=== PATIENT | male | born 1935 | race Caucasian/White ===

== ENCOUNTER 2017-12-30 11:58 | Inpatient (IN) ==
--- NOTE | 2017-12-29 21:25 | Discharge Summary ---
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 Priority: Secondary Status: Chronic (2) Sacral decubitus ulcer, stage II Priority: Secondary Status: Chronic (3) H/O aortic valve replacement Priority: Secondary Status: Chronic (4) History of aortic root repair Priority: Secondary Status: Chronic (5) Mitral valve disease Priority: Secondary Status: Chronic (6) Meniere disease Priority: Secondary Status: Chronic Qualifiers: Laterality: unspecified laterality Qualified Code(s): H81.09 - Meniere's disease, unspecified ear (7) History of skilled nursing anticoagulant use Priority: Secondary Status: Chronic (8) Chronic pain Priority: Secondary Status: Chronic Qualifiers: Chronic pain type: other chronic pain Qualified Code(s): G89.29 - Other chronic pain (9) Arthritis of left hip Priority: Primary Status: Chronic (10) Status post total hip replacement, left Priority: Primary Status: Acute (11) Afib Priority: Secondary Status: Chronic Qualifiers: Atrial fibrillation type: unspecified Qualified Code(s): I48.91 - Unspecified atrial fibrillation (12) Acute blood loss anemia Priority: Primary Status: Acute - Hospital Course Hospital course: Mr. Pickering is a 82 year old male Status post left total hip replacement The patient had an uneventful postoperative course. They received antibiotics and physical therapy and were discharged in stable condition. There will follow -up in the office in 2 weeks. - Time Spent with Patient Total time spent providing and/or coordinating discharge services: - Discharge Medications Prescriptions: HYDROcodone/Acet 5/325 mg [[place] 5-325 mg] 1 tab PO Q6H PRN 7 Days #28 tab PRN Reason: Severe Pain Home Medications: Aspirin [Lo-Dose Aspirin EC] 81 mg PO DAILY 04/10/17 [History] Furosemide [Lasix] 80 mg PO BID 04/10/17 [History] Multivitamin [Multivitamins] 1 each PO DAILY 04/10/17 [History] Potassium Chloride [K-Tab ER] 40 meq PO DAILY 04/10/17 [History] Primidone [Mysoline] 50 mg PO HS 04/10/17 [History] Warfarin [Coumadin] 3.5 mg PO MOTUWEFRSA 03/19/18 [History] Warfarin [Coumadin] 5 mg PO SUTH 10/14/17 [History] Cholecalciferol (D-3) [Vitamin D] 1,000 unit PO QPM 12/30/17 [History] Citalopram [CeleXA] 20 mg PO HS 12/30/17 [History] Enoxaparin [Lovenox] 40 mg SQ Q12HR 12/30/17 [History] Metoprolol [Lopressor] 25 mg PO BID 12/30/17 [History] Potassium Chloride [K-Tab ER] 20 meq PO QPM 12/30/17 [History] Tamsulosin [Flomax] 0.4 mg PO DAILY 12/30/17 [History] Vit A/Vit C/Vit E/Zinc/Copper [Icaps Areds Formula Dr Tablet] 1 tab PO BID 12/30 [History] HYDROcodone/Acet 5/325 mg [[place] 5-325 mg] 1 tab PO Q6H PRN 7 Days #28 tab 01/02 [Rx] Allergies/Adverse Reactions: 3 Allergy/AdvReac Type Severity Reaction Status Date / Time acetaminophen [From Percocet] AdvReac Irritable Verified 10/14/17 14:40 meperidine [From Demerol] AdvReac Nausea Verified 10/14/17 14:39 Oxycodone [From Percocet] AdvReac Irritable Verified 10/14/17 14:40 Primary care physician: King Dos Santos - Patient Status Disposition: Transfer Inpatient Rehab Fac Condition: Good Functional capacity at discharge: uses cane/walker Overall status at discharge: patient is progressing back to baseline - Discharge Instructions Follow Up With: Gaby Barcenas DO [Primary Care Provider] - <Carlene Pepe - Last Filed: 01/02/18 13:56> Date of Encounter: 01/02/18 - Discharge Diagnosis (1) Status post total hip replacement, left Priority: Primary Status: Acute (2) Arthritis of left hip Priority: Primary Status: Chronic (3) H/O aortic valve replacement Priority: Secondary Status: Chronic (4) History of aortic root repair Priority: Secondary Status: Chronic (5) Mitral valve disease Priority: Secondary Status: Chronic (6) Meniere disease Priority: Secondary Status: Chronic Qualifiers: Laterality: unspecified laterality Qualified Code(s): H81.09 - Meniere's disease, unspecified ear (7) History of skilled nursing anticoagulant use Priority: Secondary Status: Chronic (8) Chronic pain Priority: Secondary Status: Chronic Qualifiers: Chronic pain type: other chronic pain Qualified Code(s): G89.29 - Other chronic pain - Hospital Course Hospital course: Mr. Pickering is a 82 year old male - Time Spent with Patient Total time spent providing and/or coordinating discharge services: Primary care physician: King Dos Santos
[2017-12-30] MEDS ORDERED: CeFAZolin Syr 2,000MG/20 ML 2,000 MG/20 ML SYRINGE IVPB ONE (12:27)
[2017-12-30] MEDS ORDERED: Ringers Solution, Lactated 1,000 ML IVC SCH (12:30)
--- NOTE | 2017-12-30 13:42 | History & Physical Report ---
Date of Encounter: 12/30/17 Time of Encounter: 13:42 24 Hour HP Update - Instructions Instructions: If the History and Physical is less than 30 days old and was completed prior to A.M. admission and or procedure and has NOT been updated on calendar day of procedure please complete this update prior to performing procedure. - Update Patient reports changes in Medical Condition: No Changes in examination, assessment, or condition: No Changes in Medication: No Preop tests/diagnostics Reviewed: Yes Surgery Remains Indicated: Yes Consent for Planned Operative Procedure(s) Verified: Yes - Pre-Operative Checklist Preoperative Checklist Indicated: No Prophylactic Antibiotic Ordered: Yes Is VTE Prophylaxis Indicated?: Yes
[2017-12-30] MEDS ORDERED: Ondansetron 4 MG/2 ML VIAL ONE (14:25)
[2017-12-30] MEDS ORDERED: Lidocaine -MPF 2% 2 ML VIAL ONE (14:25)
[2017-12-30] MEDS ORDERED: Dexamethasone 4 MG/ML VIAL ONE (14:25)
[2017-12-30] MEDS ORDERED: *HR* Succinylcholine 200 MG/10 ML VIAL IVP ONE (14:25)
[2017-12-30] MEDS ORDERED: *HR* Propofol 200 MG/20 ML VIAL IVP ONE (14:26)
[2017-12-30] MEDS ORDERED: *HR* Midazolam HCl 2 MG/2 ML VIAL ONE (14:26)
[2017-12-30] MEDS ORDERED: *HR* FentaNYL (PF) 100 MCG/2 ML VIAL ONE (14:26)
--- NOTE | 2017-12-30 14:33 | Anesthesia Evaluation PreOp ---
Date of Encounter: 12/30/17 Time of Encounter: 14:30 - Past History Planned Operation: LEFT JACIEL Cardiac History: Arrhythmia (Afib post cardiac surgery 05/2017), Cardiac Surgery (05/2017: Thoracic aortic aneurysm + AVR) Pulmonary History: Denies Any Significant HX DRUG SAFETY SPECIALIST History: Other (Generalized weakness, tremors) Other Medical History: Other (BPH, Depression) Anesthesia History: No Prior Anesthetic Complications, Past Anesthesia Alcohol Use: occasionally Drug use: none Medications and Allergies Aspirin [Lo-Dose Aspirin EC] 81 mg PO DAILY 04/10/17 [History] Furosemide [Lasix] 80 mg PO BID 04/10/17 [History] Multivitamin [Multivitamins] 1 each PO DAILY 04/10/17 [History] Potassium Chloride [K-Tab ER] 40 meq PO DAILY 04/10/17 [History] Primidone [Mysoline] 50 mg PO HS 04/10/17 [History] Warfarin [Coumadin] 3.5 mg PO MOTUWEFRSA 10/14/17 [History] Warfarin [Coumadin] 5 mg PO SUTH 10/14/17 [History] Cholecalciferol (D-3) [Vitamin D] 1,000 unit PO QPM 12/30/17 [History] Citalopram [CeleXA] 20 mg PO HS 12/30/17 [History] Enoxaparin [Lovenox] 40 mg SQ Q12HR 12/30/17 [History] Metoprolol [Lopressor] 25 mg PO BID 12/30/17 [History] Potassium Chloride [K-Tab ER] 20 meq PO QPM 12/30/17 [History] Tamsulosin [Flomax] 0.4 mg PO DAILY 12/30/17 [History] Vit A/Vit C/Vit E/Zinc/Copper [Icaps Areds Formula Dr Tablet] 1 tab PO BID 12/30 [History] 3 Allergy/AdvReac Type Severity Reaction Status Date / Time acetaminophen [From Percocet] AdvReac Irritable Verified 10/14/17 14:40 meperidine [From Demerol] AdvReac Nausea Verified 10/14/17 14:39 Oxycodone [From Percocet] AdvReac Irritable Verified 10/14/17 14:40 - Meds/Allergy Pre-op Review Medications Reviewed: Yes Allergies Reviewed: Yes Beta Blockers on Current Med List: Yes If Beta Blockers taken, Date/Time (Last Dose taken): 0800 Anesthesia Results - Imaging EKG: report reviewed (AF) Additional studies: TTE 08/2017: LVEF 55%. Normal LV chamber size and function. Atypical septal motion consistent with post-operative status. Indeterminate diastolic function. Normal right ventricular structure and function. Severely dilated left atrium. Bioprosthetic aortic valve appears well seated and demonstrates normal function. No aortic regurgitation. No significant prosthetic aortic stenosis. Mean gradient 11 mmHg. Moderate-severe tricuspid regurgitation. No pulmonary hypertension. Anesthesia Exam O2 Sat Height 1.73 m Height 1.73 m Height 1.73 m Weight 87.997 kg Weight 87.997 kg Weight 87.997 kg O2 Sat by Pulse Oximetry 93 O2 Sat by Pulse Oximetry 93 Vital Signs Temp Pulse Resp BP Pulse Ox 98.0 F 80 18 124/77 93 12/30/17 12:17 12/30/17 12:17 12/30/17 12:17 12/30/17 12:17 12/30/17 12:17 NPO (# of Hours): 8 - HEENT Pupil (Motor): Pupils equal Mallampati: II Teeth: Normal Denture Type: Upper: Partial - DRUG SAFETY SPECIALIST LOC: Oriented (Intention tremors) DRUG SAFETY SPECIALIST Motor: Normal RUE, Normal LUE, Normal RLE, Normal LLE - Cardiac Rhythm: Irregular - Pulmonary Breath Sounds: bilateral Clear Anesthesia Assess/Plan ASA Score: 4 Modified Kenyon Scale for Level of Consciousness: Cooperative, oriented, and tranquil Anesthetic Plan: General Monitoring Plan: Standard Monitors Recovery Plan: PACU Anes Supervising Prov Stmt: Patient informed and consented. Risks, benefits, and alternatives discussed. Patient wishes to proceed.
[2017-12-30] MEDS ORDERED: Ethanol\\Acetic Acid\\Na Ace\\Ben 1,000 ML IRRIG.SOLN IR ONE (15:43)
[2017-12-30] MEDS ORDERED: Ondansetron 4 MG/2 ML VIAL IVP PRN ×2 (16:59→18:26)
[2017-12-30] MEDS ORDERED: *HR* OxyCODONE Immed Rel 5 MG TABLET PO PRN (16:59)
[2017-12-30] MEDS ORDERED: *HR* Morphine 2 MG/ML SYRINGE IVP PRN (16:59)
--- NOTE | 2017-12-30 17:10 | Orthopedic Operative Note ---
Date of procedure: 12/30/17 Pre-op diagnosis: Left hip arthritis Post-op diagnosis: same Procedure: Procedure: Left Total Hip Replacment robotic-assisted Estimated blood loss: 400 cc Hardware: Metal and polyethylene replacement. Katiuska DM Cup:58 cup Femoral size 7 stem Head: 12 head with Isamar Procedural Notes: Grade 4 arthritic changes femoral head acetabular socket, procedure performed with robotic assistance. Operative leg 5 mm longer than nonoperative leg with bilateral hip arthritis Operative procedure: The patient was brought to the operating room and placed on the operating room table. After general anesthesia was administered the patient was placed in the lateral decubitus position with the operative leg up. All pressure points were padded appropriately and the head was stabilized in the neutral position. The operative extremity was prepped and draped in the sterile surgical fashion patient received IV antibiotic prior to skin incision. 3 Steinmann pins were placed in the iliac crest 3 cm proximal to the anterior superior iliac spine this was for the robotic-assisted sensor. This was done through a small 2 cm incision. A standard posterior approach is made to the operative hip, the incision was made through the skin and subcutaneous tissue hemostasis was obtained with Bovie cautery. Using careful sharp dissection the fascia was identified and incised exposing the external rotators. The femoral checkpoint was placed leg length was measured at this time utilizing robotic assistance. The external rotators were released off the greater trochanter and tagged with # 2 FiberWire suture. The capsule was T'd open and the hip was brought into internal rotation. Patient noted to have grade 4 arthritic changes femoral head. The femoral neck cut was made at the appropriate level roughly 13 mm proximal to the lesser trochanter aced on preoperative templating. An anterior capsulotomy was performed for the anterior retractor. Soft tissues removed from the acetabulum. Patient noted to have grade 4 arthritic changes acetabulum. The acetabulum checkpoint was placed confirmed. The acetabulum was then mapped with robotic assistance. Based on the preoperative plan the acetabulum was reamed in one step with a 57 reamer. The 58 acetabulum was impacted with robotic assistance and 40 degrees of abduction and 20 degrees of anteversion. The hip was brought back in to internal rotation and prepared with the box nailer followed by the canal finder followed by the reaming process to a size 7/ 8 broaching process in 20 degrees anteversion. It was broached up to the appropriate size 7. Trial reduction revealed leg lengths close to normal. The femoral implant was impacted in place in 20 degrees of anteversion. Trial reduction found the hip to be stable with 12 head and Isamar. The trials were removed and the real implants were impacted in place. The hip was reduced, patient had robotic confirmed leg length of 12 mm longer than the contralateral side. The hip had excellent stability with forward flexion to 90 degrees adduction of 30 degrees and internal rotation of 60 degrees. The hip had no shuck. The hips after 2 minutes with a antibacterial solution. It was irrigated out with 2 L of pulse irrigation. The checkpoints were removed, Steinmann pins were removed. The hip was closed by the PA. The deep tissue was irrigated and closed deep with #1 PDS suture superficially with 0 PDS suture and skin was closed with Dermabond and zip tie. The patient was placed in a sterile dressing and abduction pillow. The patient was extubated and transferred to the recovery room in stable condition. Anesthesia: GETA Surgeon: Niko Parker Was there an assistant professor of geography present: No Estimated blood loss (cc): 400 Condition: stable Disposition: PACU
[2017-12-30] MEDS ORDERED: Neostigmine Methylsulfate 3 MG/3 ML SYRINGE ONE (17:33)
[2017-12-30] MEDS ORDERED: *HR* Enoxaparin 30 MG/0.3 ML SYRINGE SQ SCH (18:00)
[2017-12-30] MEDS ORDERED: CeFAZolin Pre 2,000 MG/100 ML 2,000 MG/100 ML BAG IVPB SCH (18:26)
[2017-12-30] MEDS ORDERED: Temazepam 15 MG CAPSULE PO PRN (18:26)
[2017-12-30] MEDS ORDERED: MOM Conc 10 ML UD.LIQ PO PRN (18:26)
[2017-12-30] MEDS ORDERED: Sennosides 8.6 MG TABLET PO PRN (18:26)
[2017-12-30] MEDS ORDERED: *HR* HYDROcodone/Acet 10/325 mg TABLET PO PRN (18:26)
[2017-12-30] MEDS ORDERED: Naloxone 0.4 MG/ML INJ IVP PRN (18:26)
--- NOTE | 2017-12-30 18:35 | Anesthesia Evaluation Post Op ---
Date of Encounter: 12/30/17 Time of Encounter: 18:32 Notes: Patient's vital signs have been reviewed. Patient is stable postoperatively and has adequately recovered from anesthesia. Patient is determined to have stable airway patency and respiratory function including respiratory rate and oxygen saturation. Patient has a stable heart rate, blood pressure and adequate hydration. Patients mental status is acceptable. Patients temperature is appropriate. Pain and nausea are adequately controlled. - Discharge PostOp Status: Transfer Patient to floor
[2017-12-30 19:44] LABS: Hematocrit 37.2 % (37.5-50.1); Hemoglobin 12.4 g/dL (12.9-16.9)
[2017-12-30] MEDS: Ascorbic Acid 500 MG TABLET PO SCH (20:30)
[2017-12-30] MEDS: Primidone 50 MG TABLET PO SCH (20:30)
[2017-12-30] MEDS: Cholecalciferol (D-3) 1,000 UNIT TABLET PO SCH (20:35)
[2017-12-30] MEDS: *HR* HYDROcodone/Acet 5/325 mg TABLET PO PRN (20:35)
[2017-12-30] MEDS: Furosemide 40 MG TABLET PO SCH (20:35)
[2017-12-30] MEDS ORDERED: *HR* Warfarin 3 MG TABLET PO SCH (21:00)
[2017-12-30] MEDS: Patient Taking Own Medication 1 EACH PO SCH (23:20)
[2017-12-30] MEDS: traMADol 50 MG TABLET PO PRN (23:32)
[2017-12-31 02:05] LABS: Hematocrit 34.8 % (37.5-50.1); Hemoglobin 11.8 g/dL (12.9-16.9)
[2017-12-31 02:24] LABS: BUN/Creatinine Ratio 19 (6-26); Blood Urea Nitrogen 23 mg/dL (8-23); Calcium 8.8 mg/dL (8.6-10.3); Carbon Dioxide 28 mEq/L (23-29); Chloride 101 mEq/L (98-107); Glucose 207 mg/dL (70-105); Osmolality,Calculated 294 (280-300); Potassium 3.7 mEq/L (3.5-5.1); Sodium 137 mEq/L (136-145); eGFR For African Americans > 60 (> 60); eGFR For Non-African Americans 57 (> 60)
[2017-12-31] MEDS: *HR* Enoxaparin 30 MG/0.3 ML SYRINGE SQ SCH ×2 (06:48→16:38)
--- NOTE | 2017-12-31 06:52 | Orthopedics Progress Note ---
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 Current Visit: No Status: Chronic (2) Sacral decubitus ulcer, stage II Current Visit: No Status: Chronic (3) H/O aortic valve replacement Current Visit: No Status: Chronic (4) History of aortic root repair Current Visit: No Status: Chronic (5) Mitral valve disease Current Visit: No Status: Chronic (6) Meniere disease Current Visit: No Status: Chronic Qualifiers: Laterality: unspecified laterality Qualified Code(s): H81.09 - Meniere's disease, unspecified ear (7) History of longterm anticoagulant use Current Visit: No Status: Chronic (8) Chronic pain Current Visit: No Status: Chronic Qualifiers: Chronic pain type: other chronic pain Qualified Code(s): G89.29 - Other chronic pain (9) Arthritis of left hip Current Visit: No Status: Chronic (10) Status post total hip replacement, left Current Visit: No Status: Acute (11) Afib Current Visit: No Status: Chronic Qualifiers: Atrial fibrillation type: unspecified Qualified Code(s): I48.91 - Unspecified atrial fibrillation Subjective Interval history: Patient was seen this morning doing well without complaints. Afebrile vital signs stable. Operative extremity: Neurovascularly intact Dressing clean dry and intact Calves nontender Assessment and plan: Continue with postoperative care Hematocrit 34 Objective Vital signs: Vital Signs Temp Pulse Resp BP Pulse Ox 12/31/17 06:27 98.0 F 83 18 109/65 94 12/31/17 03:03 98.1 F 97 17 129/74 96 12/30/17 22:52 98.2 F 96 16 112/67 93 12/30/17 19:35 93 16 97/62 94 12/30/17 18:36 97.6 F 87 15 105/61 96 12/30/17 18:35 97.6 F 92 16 105/61 97 12/30/17 18:14 98.5 F 89 16 112/80 100 12/30/17 18:04 98.5 F 87 16 93/75 100 12/30/17 17:54 98.2 F 89 16 100/70 100 12/30/17 17:44 98.2 F 113 16 158/83 96 12/30/17 13:00 98.0 F 80 18 124/77 93 12/30/17 12:17 98.0 F 80 18 124/77 93 Intake and Output 12/30/17 12/30/17 12/31/17 15:59 23:59 07:59 Intake Total 20 / 20 Output Total 400 / 400 Balance -380 / -380 Intake: IV Fluids 20 / 20 Ancef Syringe 2,000 MG/20 ML 2, 20 / 20 000 mg In 20 ml @ 200 mls/hr IVPB PREOP ONE Rx#:[id number] Output: Estimated Blood Loss 400 / 400 Other: Weight 87.997 kg 88.2 kg 87 kg Patient Weight 12/31/17 23:59 Weight 87 kg - Labs CBC & BMP: 12/31/17 01:48 12/31/17 01:48 Labs: Abnormal lab results Hgb 11.8 g/dL (12.9-16.9) L 12/31/17 01:48 Hct 34.8 % (37.5-50.1) L 12/31/17 01:48 Est GFR (Non-Af Amer) 57 (> 60) L 12/31/17 01:48 Glucose 207 mg/dL (70-105) H 12/31/17 01:48 - VTE Documentation of Mechanical Device: Venous foot pump, device Consult Discharge Plan - Plan Referrals: Gaby Barcenas DO [Primary Care Provider] -
[2017-12-31] MEDS ORDERED: CeFAZolin Pre 2,000 MG/100 ML 2,000 MG/100 ML BAG IVPB SCH (07:00)
[2017-12-31] MEDS: Furosemide 40 MG TABLET PO SCH ×2 (10:13→16:38)
[2017-12-31] MEDS: Multivit/Ca/Min/Fe/FA 1 TAB TABLET PO SCH ×2 (10:13)
[2017-12-31] MEDS: Ascorbic Acid 500 MG TABLET PO SCH ×2 (10:14→16:39)
[2017-12-31] MEDS: Aspirin Enteric Coated 81 MG Tablet PO SCH (10:14)
[2017-12-31] MEDS: Patient Taking Own Medication 1 EACH PO SCH (10:16)
[2017-12-31] MEDS: traMADol 50 MG TABLET PO PRN (10:25)
[2017-12-31 12:06] LABS: INR 1.4; Prothrombin Time 15.4 Seconds (9.4-12.1)
[2017-12-31] MEDS: PRESERVISION AREDS 2 PO SCH ×2 (12:07→22:34)
[2017-12-31] MEDS: *HR* HYDROcodone/Acet 5/325 mg TABLET PO PRN ×3 (12:10→20:48)
[2017-12-31] MEDS: Ringers Solution, Lactated 1,000 ML IVC SCH (12:11)
[2017-12-31] MEDS: Cholecalciferol (D-3) 1,000 UNIT TABLET PO SCH (16:39)
[2017-12-31] MEDS: Primidone 50 MG TABLET PO SCH (20:40)
[2018-01-01 01:52] LABS: Hematocrit 29.6 % (37.5-50.1)
[2018-01-01 01:54] LABS: Hemoglobin 9.8 g/dL (12.9-16.9)
[2018-01-01 02:07] LABS: BUN/Creatinine Ratio 20 (6-26); Blood Urea Nitrogen 27 mg/dL (8-23); Calcium 8.3 mg/dL (8.6-10.3); Carbon Dioxide 29 mEq/L (23-29); Chloride 98 mEq/L (98-107); Glucose 154 mg/dL (70-105); Osmolality,Calculated 284 (280-300); Potassium 3.6 mEq/L (3.5-5.1); Sodium 133 mEq/L (136-145); eGFR For African Americans > 60 (> 60); eGFR For Non-African Americans 52 (> 60)
[2018-01-01] MEDS: *HR* Enoxaparin 30 MG/0.3 ML SYRINGE SQ SCH ×2 (06:12→18:10)
--- NOTE | 2018-01-01 08:54 | Orthopedics Progress Note ---
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 Current Visit: No Status: Chronic (2) Sacral decubitus ulcer, stage II Current Visit: No Status: Chronic (3) H/O aortic valve replacement Current Visit: No Status: Chronic (4) History of aortic root repair Current Visit: No Status: Chronic (5) Mitral valve disease Current Visit: No Status: Chronic (6) Meniere disease Current Visit: No Status: Chronic Qualifiers: Laterality: unspecified laterality Qualified Code(s): H81.09 - Meniere's disease, unspecified ear (7) History of senior care anticoagulant use Current Visit: No Status: Chronic (8) Chronic pain Current Visit: No Status: Chronic Qualifiers: Chronic pain type: other chronic pain Qualified Code(s): G89.29 - Other chronic pain (9) Arthritis of left hip Current Visit: No Status: Chronic (10) Status post total hip replacement, left Current Visit: No Status: Acute (11) Afib Current Visit: No Status: Chronic Qualifiers: Atrial fibrillation type: unspecified Qualified Code(s): I48.91 - Unspecified atrial fibrillation (12) Acute blood loss anemia Current Visit: Yes Status: Acute Subjective Interval history: Patient was seen this morning doing well without complaints. Afebrile vital signs stable. Operative extremity: Neurovascularly intact Dressing clean dry and intact Calves nontender Assessment and plan: Continue with postoperative care Hemoglobin 9.8 Objective Vital signs: Vital Signs Temp Pulse Resp BP Pulse Ox 01/01/18 07:33 98.3 F 89 17 102/61 93 01/01/18 04:30 98.1 F 71 15 99/58 97 12/31/17 23:43 98.7 F 94 15 100/64 91 12/31/17 20:38 113/68 12/31/17 18:47 98.5 F 89 16 79/49 95 12/31/17 15:35 98.0 F 81 16 91/56 94 12/31/17 11:54 98.0 F 119 18 96/61 95 12/31/17 11:40 94 Intake and Output 12/31/17 01/01/18 01/01/18 23:59 07:59 15:59 Intake Total 300 / 300 Output Total 400 / 400 Balance 300 / 300 -400 / -400 Intake: Oral 300 / 300 Output: Urine 400 / 400 Other: # Voids 1 # Urine Diapers 1 Weight 89.5 kg - Labs CBC & BMP: 01/01/18 01:29 01/01/18 01:29 Labs: Abnormal lab results Hgb 9.8 g/dL (12.9-16.9) L D 01/01/18 01:29 Hct 29.6 % (37.5-50.1) L 01/01/18 01:29 PT 15.4 Seconds (9.4-12.1) H 12/31/17 11:48 Sodium 133 mEq/L (136-145) L 01/01/18 01:29 BUN 27 mg/dL (8-23) H 01/01/18 01:29 Creatinine 1.32 mg/dL (0.70-1.30) H 01/01/18 01:29 Est GFR (Non-Af Amer) 52 (> 60) L 01/01/18 01:29 Glucose 154 mg/dL (70-105) H 01/01/18 01:29 Calcium 8.3 mg/dL (8.6-10.3) L 01/01/18 01:29 - VTE Documentation of Mechanical Device: Venous foot pump, device Consult Discharge Plan - Plan Referrals: Gaby Barcenas DO [Primary Care Provider] -
[2018-01-01] MEDS: PRESERVISION AREDS 2 PO SCH ×2 (10:45→21:29)
[2018-01-01] MEDS: Furosemide 40 MG TABLET PO SCH ×2 (10:46→20:17)
[2018-01-01] MEDS: Ascorbic Acid 500 MG TABLET PO SCH ×2 (10:49→18:06)
[2018-01-01] MEDS: Multivit/Ca/Min/Fe/FA 1 TAB TABLET PO SCH ×2 (10:50)
[2018-01-01] MEDS: Aspirin Enteric Coated 81 MG Tablet PO SCH (10:52)
[2018-01-01] MEDS: *HR* HYDROcodone/Acet 5/325 mg TABLET PO PRN (11:07)
[2018-01-01] MEDS: Cholecalciferol (D-3) 1,000 UNIT TABLET PO SCH (18:06)
[2018-01-01] MEDS: Primidone 50 MG TABLET PO SCH (21:29)
[2018-01-02] MEDS: *HR* HYDROcodone/Acet 5/325 mg TABLET PO PRN ×2 (03:55→13:11)
[2018-01-02 06:09] LABS: INR 1.3; Prothrombin Time 13.7 Seconds (9.4-12.1)
[2018-01-02 07:21] LABS: Basophils % 0.5 %; Eosinophils # 0.1 K/mcL (0.0-0.6); Eosinophils % 1.6 %; Hematocrit 28.6 % (37.5-50.1); Hemoglobin 9.4 g/dL (12.9-16.9); Immature Granulocytes % 0.5 % (0-4); Lymphocytes # 1.2 K/mcL (0.6-4.6); Lymphocytes % 13.9 %; Mean Corpuscular HGB Conc 32.9 g/dL (31.6-35.5); Mean Corpuscular Hemoglobin 32.5 pg (28.0-33.3); Mean Platelet Volume 9.7 fL (9.4-12.4); Monocytes # 0.8 K/mcL (0.0-1.3); Monocytes % 9.2 %; Neutrophils # 6.2 K/mcL (1.6-8.9); Platelet Count 153 K/mcL (140-400); Red Blood Count 2.89 M/mcL (4.19-5.50); Red Cell Distribution Width 15.6 % (11.5-14.5); Segmented Neutrophils % 74.3 %
[2018-01-02 07:41] LABS: BUN/Creatinine Ratio 18 (6-26); Blood Urea Nitrogen 17 mg/dL (8-23); Calcium 8.6 mg/dL (8.6-10.3); Carbon Dioxide 28 mEq/L (23-29); Chloride 104 mEq/L (98-107); Glucose 131 mg/dL (70-105); Osmolality,Calculated 287 (280-300); Potassium 3.8 mEq/L (3.5-5.1); Sodium 137 mEq/L (136-145); eGFR For African Americans > 60 (> 60); eGFR For Non-African Americans > 60 (> 60)
[2018-01-02] MEDS: Furosemide 40 MG TABLET PO SCH (09:33)
[2018-01-02] MEDS: PRESERVISION AREDS 2 PO SCH (09:33)
[2018-01-02] MEDS: Ascorbic Acid 500 MG TABLET PO SCH (09:34)
[2018-01-02] MEDS: Aspirin Enteric Coated 81 MG Tablet PO SCH (09:34)
[2018-01-02] MEDS: *HR* Enoxaparin 30 MG/0.3 ML SYRINGE SQ SCH (09:35)
[2018-01-02] MEDS: Multivit/Ca/Min/Fe/FA 1 TAB TABLET PO SCH ×2 (09:35)
[2018-01-02 11:09] VITALS: BP 94/56
--- NOTE | 2018-01-02 13:36 | Event Note ---
Date of Encounter: 12/31/17 Time of Encounter: 13:35 PCR- POD#1 L THR PCR - Patient seen at bedside. Spouse at bedside. Labwork and medications reviewed. Pain control: Adequate Participating in PT. All questions and concerns addressed. Educated on use of incentive spirometer, ambulation, and hydration. Patient educated on post-operative restrictions and care. Addressed: see above. D/C plan: ECF vs HH
--- NOTE | 2018-01-02 13:37 | Event Note ---
Date of Encounter: 01/01/18 Time of Encounter: 15:30 PCR- POD#2 L THR PCR - Patient seen at bedside. Spouse at bedside. Patient's daughter at bedside. Labwork and medications reviewed. Pain control: Adequate Participating in PT. All questions and concerns addressed. Educated on use of incentive spirometer, ambulation, and hydration. Patient educated on post-operative restrictions and care. Addressed: see above. D/C plan: ECF vs HH -family leaning toward HH
--- NOTE | 2018-01-02 13:40 | Event Note ---
Date of Encounter: 01/02/18 Time of Encounter: 17:33 PCR- POD#3 L THR PCR - Patient seen at bedside. Spouse and daughter at bedside. Labwork and medications reviewed. Pain control: Adequate Participating in PT. All questions and concerns addressed. Educated on use of incentive spirometer, ambulation, and hydration. Patient educated on post-operative restrictions and care. Addressed: see above. D/C plan: [facility]
--- NOTE | 2018-01-02 17:33 | Physician Discharge Referral ---
ExtendedCare Referral Info Transfer To: ON [facility] OF [facility] Provider in Charge: Dr. Parker - Diagnosis (1) Status post total hip replacement, left Priority: Primary Status: Acute (2) Arthritis of left hip Priority: Primary Status: Chronic (3) H/O aortic valve replacement Priority: Secondary Status: Chronic (4) History of aortic root repair Priority: Secondary Status: Chronic (5) Mitral valve disease Priority: Secondary Status: Chronic (6) Meniere disease Priority: Secondary Status: Chronic (7) History of ferry terminal agent anticoagulant use Priority: Secondary Status: Chronic (8) Chronic pain Priority: Secondary Status: Chronic Expected Duration of Placement: less than 30 days Prognosis: Good Aware of Diagnosis: Patient Aware of Prognosis: Patient - Transfer Medications Prescriptions: HYDROcodone/Acet 5/325 mg [[place] 5-325 mg] 1 tab PO Q6H PRN 7 Days #28 tab PRN Reason: Severe Pain Home Medications: Aspirin [Lo-Dose Aspirin EC] 81 mg PO DAILY 04/10/17 [History] Furosemide [Lasix] 80 mg PO BID 04/10/17 [History] Multivitamin [Multivitamins] 1 each PO DAILY 04/10/17 [History] Potassium Chloride [K-Tab ER] 40 meq PO DAILY 04/10/17 [History] Primidone [Mysoline] 50 mg PO HS 04/10/17 [History] Warfarin [Coumadin] 3.5 mg PO MOTUWEFRSA 10/14/17 [History] Warfarin [Coumadin] 5 mg PO SUTH 10/14/17 [History] Cholecalciferol (D-3) [Vitamin D] 1,000 unit PO QPM 12/30/17 [History] Citalopram [CeleXA] 20 mg PO HS 12/30/17 [History] Enoxaparin [Lovenox] 40 mg SQ Q12HR 12/30/17 [History] Metoprolol [Lopressor] 25 mg PO BID 12/30/17 [History] Potassium Chloride [K-Tab ER] 20 meq PO QPM 12/30/17 [History] Tamsulosin [Flomax] 0.4 mg PO DAILY 12/30/17 [History] Vit A/Vit C/Vit E/Zinc/Copper [Icaps Areds Formula Dr Tablet] 1 tab PO BID 12/30 [History] HYDROcodone/Acet 5/325 mg [[place] 5-325 mg] 1 tab PO Q6H PRN 7 Days #28 tab 01/02 [Rx] Allergies/Adverse Reactions: 3 Allergy/AdvReac Type Severity Reaction Status Date / Time acetaminophen [From Percocet] AdvReac Irritable Verified 10/14/17 14:40 meperidine [From Demerol] AdvReac Nausea Verified 10/14/17 14:39 Oxycodone [From Percocet] AdvReac Irritable Verified 10/14/17 14:40 - Respiratory Orders Smoking Cessation: Smoking cessation has been advised. For more information, call the [place] Tobacco Quit Line at 6-026-DFAH-NOW. - Ancillary Orders May use pressure relief devices daily prn, May go on [place] w/family/respon green party w /meds at nurse discretion PRN, May consult with Dentist, Bone Process Operator, Instrument Maker Apprentice PRN - Mobility Orders Chair, Ambulate - Rehabiliation Orders Rehab Potential: Good Rehab Orders: Evaluation for Physical Therapy, Evaluation for Occupational Therapy Other: Total Hip replacement Precautions Apply cold therapy 3-6x/day for 20 minutes at a time. Encourage ambulation throughout the day and incentive spirometer 10x/hour. Elevate affected extremity as tolerated. Brace: Wear hip abduction pillow when laying/sleeping - Treatments Skin tear care topically daily PRN per policy List/Other: Opsite placed. Keep dressing intact until first follow up appointment. If greater than 50% saturated, notify office, remove dressing and place appropriate dressing back in place. Leave Zipline intact. Opsite dressing is water resistant, not water-proof. OK to shower, but do not get dressing wet. - Diet Orders Regular CERTIFICATION: I certify that the transfer of the above named patient to an Extended Care Facility is necessary for the continuing treatment of the diagnosis listed. The above information is true and accurate reflection of patient's current condition. Confidential - Redisclosure prohibited without a patient's written consent.
[2018-01-02] MEDS ORDERED: *HR* Warfarin 5 MG TABLET PO SCH (18:00)
== END 2018-01-02 18:54 | DRG 470 ==
LOC: SAMDAY 11:58 → 3NENU 18:26
PROVIDERS: ADMIT Orthopaedic Surgery; ATTEND Orthopaedic Surgery

== ENCOUNTER 2020-04-04 14:45 | Inpatient (IN) ==
[2020-04-04] MEDS ORDERED: *HR* HYDROmorphone (PF) 1 MG/ML SYRINGE IVP STA (15:35)
[2020-04-04 16:26] LABS: Hematocrit 45.6 % (37.5-50.1); Immature Granulocytes % 0.2 % (0-4); Lymphocytes # 0.4 K/mcL (0.6-4.6); Lymphocytes % 4.6 %; Mean Corpuscular HGB Conc 32.9 g/dL (31.6-35.5); Mean Corpuscular Volume 106.3 fL (83.0-100.0); Mean Platelet Volume 10.6 fL (9.4-12.4); Monocytes % 0.5 %; Neutrophils # 7.6 K/mcL (1.6-8.9); Platelet Count 101 K/mcL (140-400); Red Blood Count 4.29 M/mcL (4.19-5.50); Red Cell Distribution Width 14.2 % (11.5-14.5); Segmented Neutrophils % 94.7 %
[2020-04-04] MEDS ORDERED: Isovue-370 500 ML BOTTLE IVP ONE (16:33)
[2020-04-04 16:35] LABS: INR 2.6; Prothrombin Time 29.5 Seconds (9.4-12.1)
[2020-04-04 16:42] LABS: Bilirubin,Urine Negative (Negative); Blood,Urine Negative (Negative); Clarity,Urine Clear (Clear); Color,Urine Light-Yellow (Yellow); Glucose,Urine (UA) Normal (Normal); Ketones,Urine Negative (Negative); Leukocyte Esterase,Urine Negative (Negative); Nitrite,Urine Negative (Negative); PH,Urine 7.5 pH Units (5.0-8.0); Protein,Urine Negative (Neg-Trace); Urobilinogen,Urine Normal (Normal)
[2020-04-04 16:45] LABS: Alanine Aminotransferase 314 Units/L (7-52); Albumin 4.3 g/dL (3.5-5.7); Albumin/Globulin Ratio 1.7 (1.1-2.2); Alkaline Phosphatase 166 Units/L (34-104); Aspartate Amino Transferase 532 Units/L (13-39); BUN/Creatinine Ratio 23 (6-26); Bilirubin,Direct 1.4 mg/dL (0.0-0.2); Bilirubin,Indirect 0.9 mg/dL (0.0-1.0); Bilirubin,Total 2.3 mg/dL (0.3-1.0); Blood Urea Nitrogen 27 mg/dL (8-23); Calcium 9.4 mg/dL (8.6-10.3); Carbon Dioxide 30 mEq/L (23-29); Chloride 97 mEq/L (98-107); Globulin 2.5 g/dL (2.4-3.5); Glucose 148 mg/dL (70-105); Lipase 25 Units/L (11-82); Osmolality,Calculated 292 (280-300); Potassium 3.6 mEq/L (3.5-5.1); Sodium 137 mEq/L (136-145); Total Protein 6.8 g/dL (6.4-8.9); eGFR For African Americans > 60 (> 60); eGFR For Non-African Americans > 60 (> 60)
[2020-04-04 16:48] LABS: Bacteria,Urine Few per hpf (None-Few); RBC,Urine 0-3 per hpf (0-3); WBC,Urine 0-3 per hpf (0-3)
[2020-04-04] MEDS ORDERED: Ondansetron 4 MG/2 ML VIAL IVP ONE (17:10)
[2020-04-04] MEDS ORDERED: Ondansetron 4 MG/2 ML VIAL IVP PRN (18:29)
[2020-04-04] MEDS ORDERED: Naloxone 0.4 MG/ML INJ IVP PRN (18:29)
[2020-04-04 20:14] LABS: Adenovirus Not Detected (Not Detect); Bordetella Pertussis Not Detected (Not Detect); Chlamydophila pneumoniae Not Detected (Not Detect); Coronavirus 229E Not Detected (Not Detect); Coronavirus HKU1 Not Detected (Not Detect); Coronavirus NL63 Not Detected (Not Detect); Coronavirus OC43 Not Detected (Not Detect); Human Metapneumovirus Not Detected (Not Detect); Human Rhinovirus/Enterovirus Not Detected (Not Detect); Influenza A Subtype 2009 H1 Not Detected (Not Detect); Influenza B Not Detected (Not Detect); Mycoplasma pneumoniae Not Detected (Not Detect); Parainfluenza Virus 1 Not Detected (Not Detect); Parainfluenza Virus 2 Not Detected (Not Detect); Parainfluenza Virus 3 Not Detected (Not Detect); Parainfluenza Virus 4 Not Detected (Not Detect); Respiratory Syncytial Virus Not Detected (Not Detect); SARS-CoV-2 Not Detected (Not Detect)
[2020-04-04] MEDS: 0.9 % Sodium Chloride 1,000 ML IVC SCH (20:44)
[2020-04-04] MEDS ORDERED: 0.9 % Sodium Chloride 1,000 ML ONE (23:35)
[2020-04-05] MEDS: 0.9 % Sodium Chloride 1,000 ML IVC SCH ×2 (00:43→00:44)
[2020-04-05] MEDS ORDERED: *HR* HYDROmorphone (PF) 1 MG/ML SYRINGE IVP PRN (02:09)
[2020-04-05] MEDS ORDERED: 0.9 % Sodium Chloride 1,000 ML IVC ONE (02:23)
[2020-04-05 05:38] LABS: Hematocrit 39.8 % (37.5-50.1); Mean Corpuscular HGB Conc 32.4 g/dL (31.6-35.5); Mean Corpuscular Hemoglobin 34.2 pg (28.0-33.3); Mean Corpuscular Volume 105.6 fL (83.0-100.0); Mean Platelet Volume 10.6 fL (9.4-12.4); Platelet Count 120 K/mcL (140-400); Red Blood Count 3.77 M/mcL (4.19-5.50); Red Cell Distribution Width 14.6 % (11.5-14.5)
[2020-04-05 05:39] LABS: Hemoglobin 12.9 g/dL (12.9-16.9)
[2020-04-05 05:42] LABS: INR 2.5
[2020-04-05 05:45] LABS: Activated Partial Thrombo Time 38.6 Seconds (26.0-36.0)
[2020-04-05 06:30] LABS: Alanine Aminotransferase 660 Units/L (7-52); Albumin 3.7 g/dL (3.5-5.7); Albumin/Globulin Ratio 1.8 (1.1-2.2); Alkaline Phosphatase 183 Units/L (34-104); Aspartate Amino Transferase 705 Units/L (13-39); BUN/Creatinine Ratio 19 (6-26); Bilirubin,Total 4.5 mg/dL (0.3-1.0); Blood Urea Nitrogen 25 mg/dL (8-23); Calcium 8.5 mg/dL (8.6-10.3); Carbon Dioxide 27 mEq/L (23-29); Chloride 101 mEq/L (98-107); Globulin 2.1 g/dL (2.4-3.5); Glucose 138 mg/dL (70-105); Osmolality,Calculated 293 (280-300); Potassium 3.9 mEq/L (3.5-5.1); Sodium 138 mEq/L (136-145); Total Protein 5.8 g/dL (6.4-8.9); eGFR For African Americans > 60 (> 60); eGFR For Non-African Americans 53 (> 60)
[2020-04-05] MEDS: Acetaminophen 325 MG TABLET PO PRN (08:59)
[2020-04-05] MEDS: *HR* HYDROmorphone (PF) 1 MG/ML SYRINGE IVP PRN ×2 (11:19→14:25)
[2020-04-05] MEDS ORDERED: *HR* Phytonadione 5 MG TABLET PO ONE (11:57)
[2020-04-05 12:52] LABS: Hematocrit 38.9 % (37.5-50.1); Hemoglobin 12.5 g/dL (12.9-16.9); Mean Corpuscular HGB Conc 32.1 g/dL (31.6-35.5); Mean Corpuscular Hemoglobin 34.3 pg (28.0-33.3); Mean Corpuscular Volume 106.9 fL (83.0-100.0); Platelet Count 102 K/mcL (140-400); Red Blood Count 3.64 M/mcL (4.19-5.50); Red Cell Distribution Width 14.6 % (11.5-14.5); White Blood Count 13.1 K/mcL (4.3-11.1)
[2020-04-05] MEDS: Heparin 25,000UNIT/250ML 1/2NS 25,000 UNIT/250 ML IV.SOLN IVC SCH (13:13)
[2020-04-05] MEDS ORDERED: *HR* Promethazine 25 MG/ML VIAL IVP PRN (13:51)
[2020-04-06 01:49] LABS: Basophils % 0.3 %; Eosinophils # 0.1 K/mcL (0.0-0.6); Eosinophils % 0.8 %; Hematocrit 40.8 % (37.5-50.1); Immature Granulocytes % 0.4 % (0-4); Lymphocytes # 0.5 K/mcL (0.6-4.6); Lymphocytes % 4.4 %; Mean Corpuscular HGB Conc 31.9 g/dL (31.6-35.5); Mean Corpuscular Volume 106.8 fL (83.0-100.0); Mean Platelet Volume 10.6 fL (9.4-12.4); Monocytes # 0.6 K/mcL (0.0-1.3); Neutrophils # 9.7 K/mcL (1.6-8.9); Platelet Count 106 K/mcL (140-400); Red Blood Count 3.82 M/mcL (4.19-5.50); Red Cell Distribution Width 14.9 % (11.5-14.5); Segmented Neutrophils % 89.1 %; White Blood Count 10.9 K/mcL (4.3-11.1)
[2020-04-06 02:09] LABS: INR 2.2; Prothrombin Time 24.8 Seconds (9.4-12.1)
[2020-04-06 02:10] LABS: Alanine Aminotransferase 482 Units/L (7-52); Albumin 3.7 g/dL (3.5-5.7); Albumin/Globulin Ratio 1.6 (1.1-2.2); Alkaline Phosphatase 172 Units/L (34-104); Aspartate Amino Transferase 353 Units/L (13-39); BUN/Creatinine Ratio 19 (6-26); Bilirubin,Direct 1.7 mg/dL (0.0-0.2); Bilirubin,Indirect 1.4 mg/dL (0.0-1.0); Bilirubin,Total 3.1 mg/dL (0.3-1.0); Blood Urea Nitrogen 22 mg/dL (8-23); Calcium 8.6 mg/dL (8.6-10.3); Carbon Dioxide 27 mEq/L (23-29); Chloride 104 mEq/L (98-107); Globulin 2.3 g/dL (2.4-3.5); Glucose 112 mg/dL (70-105); Heparin anti-factor XA UFH 0.97 IU/mL (0.30-0.70); Osmolality,Calculated 292 (280-300); Potassium 3.5 mEq/L (3.5-5.1); Sodium 139 mEq/L (136-145); eGFR For African Americans > 60 (> 60); eGFR For Non-African Americans > 60 (> 60)
[2020-04-06] MEDS: Heparin 25,000UNIT/250ML 1/2NS 25,000 UNIT/250 ML IV.SOLN IVC SCH (08:40)
[2020-04-06] MEDS ORDERED: 0.9 % Sodium Chloride 250 ML ONE (11:45)
[2020-04-06] MEDS: Acetaminophen 325 MG TABLET PO PRN (11:49)
[2020-04-06 14:18] LABS: INR 1.5; Prothrombin Time 16.5 Seconds (9.4-12.1)
[2020-04-06] MEDS ORDERED: *HR* Succinylcholine 200 MG/10 ML VIAL IVP ONE (14:31)
[2020-04-06] MEDS ORDERED: Lidocaine -MPF 2% 2 ML VIAL ONE (14:31)
[2020-04-06] MEDS ORDERED: *HR* Propofol 200 MG/20 ML VIAL IVP ONE (14:31)
[2020-04-06] MEDS ORDERED: Ondansetron 4 MG/2 ML VIAL ONE (15:13)
[2020-04-06] MEDS ORDERED: Dexamethasone 4 MG/ML VIAL ONE (15:29)
[2020-04-06] MEDS ORDERED: Indomethacin 50 MG SUPP.RECT RC ONE (15:35)
[2020-04-07 00:37] LABS: BUN/Creatinine Ratio 19 (6-26); Blood Urea Nitrogen 20 mg/dL (8-23); Calcium 8.6 mg/dL (8.6-10.3); Carbon Dioxide 26 mEq/L (23-29); Chloride 105 mEq/L (98-107); Glucose 181 mg/dL (70-105); Osmolality,Calculated 293 (280-300); Sodium 138 mEq/L (136-145); eGFR For African Americans > 60 (> 60); eGFR For Non-African Americans > 60 (> 60)
[2020-04-07] MEDS: Heparin 25,000UNIT/250ML 1/2NS 25,000 UNIT/250 ML IV.SOLN IVC SCH (00:44)
[2020-04-07 00:51] LABS: Basophils % 0.1 %; Hemoglobin 12.8 g/dL (12.9-16.9); Immature Granulocytes % 0.2 % (0-4); Lymphocytes # 0.4 K/mcL (0.6-4.6); Lymphocytes % 4.3 %; Mean Corpuscular HGB Conc 32.8 g/dL (31.6-35.5); Mean Corpuscular Hemoglobin 35.7 pg (28.0-33.3); Mean Corpuscular Volume 108.6 fL (83.0-100.0); Monocytes # 0.3 K/mcL (0.0-1.3); Monocytes % 3.8 %; Neutrophils # 7.8 K/mcL (1.6-8.9); Platelet Count 103 K/mcL (140-400); Red Blood Count 3.59 M/mcL (4.19-5.50); Red Cell Distribution Width 14.6 % (11.5-14.5); Segmented Neutrophils % 91.6 %; White Blood Count 8.5 K/mcL (4.3-11.1)
[2020-04-07] MEDS ORDERED: Lidocaine HCL 4 ML Topical Solution (Laryng-O-Jet Kit Sterile Pak) TP ONE (07:05)
[2020-04-07] MEDS ORDERED: *HR* Succinylcholine 200 MG/10 ML VIAL IVP ONE (07:06)
[2020-04-07] MEDS ORDERED: *HR* Propofol 200 MG/20 ML VIAL IVP ONE (07:07)
[2020-04-07] MEDS ORDERED: Dexamethasone 4 MG/ML VIAL ONE (07:07)
[2020-04-07] MEDS ORDERED: Lidocaine -MPF 2% 2 ML VIAL ONE (07:07)
[2020-04-07] MEDS ORDERED: Ondansetron 4 MG/2 ML VIAL ONE (07:07)
[2020-04-07] MEDS ORDERED: *HR* FentaNYL (PF) 100 MCG/2 ML VIAL ONE (07:07)
[2020-04-07] MEDS ORDERED: *HR* Rocuronium Bromide 50 MG/5 ML VIAL ONE (07:07)
[2020-04-07] MEDS ORDERED: *HR* FentaNYL (PF) 100 MCG/2 ML VIAL IVP PRN ×2 (09:53→12:42)
[2020-04-07] MEDS ORDERED: *HR* Promethazine 25 MG/ML VIAL IVP PRN ×3 (09:53→12:42)
[2020-04-07] MEDS ORDERED: Ondansetron 4 MG/2 ML VIAL IVP ONE (09:53)
[2020-04-07] MEDS ORDERED: *HR* OxyCODONE Immed Rel 5 MG TABLET PO PRN (09:53)
[2020-04-07] MEDS ORDERED: ceFAZolin 2,000 MG in 0.9 % Sodium Chloride 100 ML IVPB ONE (10:15)
[2020-04-07] MEDS ORDERED: Acetaminophen IV 1,000 MG/100 ML INFUS..BTL ONE (10:21)
[2020-04-07] MEDS ORDERED: *HR* Metoprolol 5 MG/5 ML VIAL IVP ONE (11:36)
[2020-04-07] MEDS ORDERED: Naloxone 0.4 MG/ML INJ IVP PRN (12:42)
[2020-04-07] MEDS ORDERED: Ondansetron 4 MG/2 ML VIAL IVP PRN (12:42)
[2020-04-07 14:07] LABS: INR 1.2; Prothrombin Time 13.8 Seconds (9.4-12.1)
[2020-04-07 14:08] LABS: Albumin 3.2 g/dL (3.5-5.7); Albumin/Globulin Ratio 1.5 (1.1-2.2); Bilirubin,Direct 0.7 mg/dL (0.0-0.2); Bilirubin,Indirect 0.8 mg/dL (0.0-1.0); Bilirubin,Total 1.5 mg/dL (0.3-1.0); Globulin 2.2 g/dL (2.4-3.5); Total Protein 5.4 g/dL (6.4-8.9)
[2020-04-07] MEDS: Acetaminophen 325 MG TABLET PO PRN (15:20)
[2020-04-07] MEDS ORDERED: 0.9 % Sodium Chloride 500 ML IVC ONE (17:19)
[2020-04-07] MEDS ORDERED: 0.9 % Sodium Chloride 500 ML ONE (17:25)
[2020-04-07] MEDS: *HR* HYDROmorphone (PF) 1 MG/ML SYRINGE IVP PRN ×2 (17:29→20:54)
[2020-04-07 18:42] LABS: Hematocrit 34.5 % (37.5-50.1)
[2020-04-07 18:49] LABS: Hemoglobin 10.8 g/dL (12.9-16.9)
[2020-04-07 23:39] LABS: INR 1.3; Prothrombin Time 14.8 Seconds (9.4-12.1)
[2020-04-07 23:46] LABS: Basophils % 0.1 %; Hematocrit 34.2 % (37.5-50.1); Immature Granulocytes % 0.6 % (0-4); Lymphocytes # 0.6 K/mcL (0.6-4.6); Lymphocytes % 4.8 %; Mean Corpuscular HGB Conc 32.2 g/dL (31.6-35.5); Mean Corpuscular Hemoglobin 34.7 pg (28.0-33.3); Mean Corpuscular Volume 107.9 fL (83.0-100.0); Mean Platelet Volume 10.6 fL (9.4-12.4); Monocytes # 0.8 K/mcL (0.0-1.3); Monocytes % 6.5 %; Neutrophils # 10.2 K/mcL (1.6-8.9); Platelet Count 138 K/mcL (140-400); Red Blood Count 3.17 M/mcL (4.19-5.50); Red Cell Distribution Width 14.6 % (11.5-14.5); White Blood Count 11.6 K/mcL (4.3-11.1)
[2020-04-07 23:52] LABS: Albumin 3.2 g/dL (3.5-5.7); Albumin/Globulin Ratio 1.5 (1.1-2.2); Bilirubin,Total 1.3 mg/dL (0.3-1.0); Calcium 8.1 mg/dL (8.6-10.3); Globulin 2.2 g/dL (2.4-3.5); Phosphorous 3.2 mg/dL (2.7-4.5); Potassium 3.9 mEq/L (3.5-5.1); Total Protein 5.4 g/dL (6.4-8.9)
[2020-04-08 07:58] LABS: Basophils % 0.1 %; Hematocrit 30.9 % (37.5-50.1); Immature Granulocytes % 0.5 % (0-4); Lymphocytes # 0.8 K/mcL (0.6-4.6); Lymphocytes % 7.5 %; Mean Corpuscular HGB Conc 32.4 g/dL (31.6-35.5); Mean Corpuscular Hemoglobin 34.5 pg (28.0-33.3); Mean Corpuscular Volume 106.6 fL (83.0-100.0); Mean Platelet Volume 10.5 fL (9.4-12.4); Monocytes # 0.9 K/mcL (0.0-1.3); Neutrophils # 8.7 K/mcL (1.6-8.9); Platelet Count 111 K/mcL (140-400); Red Cell Distribution Width 14.6 % (11.5-14.5); Segmented Neutrophils % 82.9 %; White Blood Count 10.5 K/mcL (4.3-11.1)
[2020-04-08 08:03] LABS: INR 1.3; Prothrombin Time 15.1 Seconds (9.4-12.1)
[2020-04-08 08:17] LABS: BUN/Creatinine Ratio 19 (6-26); Blood Urea Nitrogen 25 mg/dL (8-23); Calcium 8.2 mg/dL (8.6-10.3); Carbon Dioxide 27 mEq/L (23-29); Chloride 105 mEq/L (98-107); Glucose 145 mg/dL (70-105); Osmolality,Calculated 293 (280-300); Potassium 3.8 mEq/L (3.5-5.1); Sodium 138 mEq/L (136-145); eGFR For African Americans > 60 (> 60); eGFR For Non-African Americans 51 (> 60)
[2020-04-08] MEDS: Acetaminophen 325 MG TABLET PO PRN (09:43)
[2020-04-08] MEDS: Sennosides/Docusate Sodium TABLET PO SCH ×2 (14:31→22:07)
[2020-04-08] MEDS: Heparin 25,000UNIT/250ML 1/2NS 25,000 UNIT/250 ML IV.SOLN IVC SCH (14:32)
[2020-04-08] MEDS ORDERED: Bisacodyl 10 MG RECTAL SUPPOSITORY RC ONE (17:47)
[2020-04-08] MEDS ORDERED: Warfarin perPT PO PRN (18:00)
[2020-04-08] MEDS ORDERED: *HR* Warfarin 7.5 MG TABLET PO ONE (18:00)
[2020-04-08] MEDS ORDERED: *HR* Metoprolol 5 MG/5 ML VIAL IVP ONE (21:13)
[2020-04-09 06:17] LABS: Eosinophils % 1.3 %; Immature Granulocytes % 0.8 % (0-4); Red Cell Distribution Width 14.5 % (11.5-14.5)
[2020-04-09 06:19] LABS: Basophils % 0.4 %; Eosinophils # 0.1 K/mcL (0.0-0.6); Hematocrit 27.9 % (37.5-50.1); Immature Platelets 3.2 % (1.1-6.1); Lymphocytes # 0.9 K/mcL (0.6-4.6); Lymphocytes % 10.4 %; Mean Corpuscular HGB Conc 32.3 g/dL (31.6-35.5); Mean Corpuscular Hemoglobin 34.7 pg (28.0-33.3); Mean Corpuscular Volume 107.7 fL (83.0-100.0); Mean Platelet Volume 10.5 fL (9.4-12.4); Monocytes # 0.9 K/mcL (0.0-1.3); Monocytes % 10.3 %; Neutrophils # 6.4 K/mcL (1.6-8.9); Platelet Count 106 K/mcL (140-400); Red Blood Count 2.59 M/mcL (4.19-5.50); Segmented Neutrophils % 76.8 %; White Blood Count 8.3 K/mcL (4.3-11.1)
[2020-04-09 06:26] LABS: INR 1.5; Prothrombin Time 16.9 Seconds (9.4-12.1)
[2020-04-09 06:37] LABS: BUN/Creatinine Ratio 15 (6-26); Blood Urea Nitrogen 15 mg/dL (8-23); Calcium 8.1 mg/dL (8.6-10.3); Carbon Dioxide 26 mEq/L (23-29); Chloride 105 mEq/L (98-107); Glucose 145 mg/dL (70-105); Osmolality,Calculated 287 (280-300); Potassium 3.3 mEq/L (3.5-5.1); Sodium 137 mEq/L (136-145); eGFR For African Americans > 60 (> 60); eGFR For Non-African Americans > 60 (> 60)
[2020-04-09 06:41] LABS: Magnesium 1.9 mg/dL (1.6-2.6)
[2020-04-09] MEDS ORDERED: Potassium Phosphate 44 MEQ in 0.9 % Sodium Chloride 250 ML IVPB ONE (06:44)
[2020-04-09] MEDS: Heparin 25,000UNIT/250ML 1/2NS 25,000 UNIT/250 ML IV.SOLN IVC SCH (07:12)
[2020-04-09] MEDS: Sennosides/Docusate Sodium TABLET PO SCH ×2 (08:45→20:22)
[2020-04-09] MEDS ORDERED: *HR* Warfarin 5 MG TABLET PO ONE (18:00)
[2020-04-09] MEDS: *HR* HYDROmorphone (PF) 1 MG/ML SYRINGE IVP PRN (21:18)
[2020-04-10] MEDS: Heparin 25,000UNIT/250ML 1/2NS 25,000 UNIT/250 ML IV.SOLN IVC SCH ×2 (02:19→21:14)
[2020-04-10] MEDS: Sennosides/Docusate Sodium TABLET PO SCH ×2 (08:43→21:26)
[2020-04-10] MEDS ORDERED: Potassium Phosphate 44 MEQ in 0.9 % Sodium Chloride 250 ML IVPB ONE (10:23)
[2020-04-10] MEDS: Ipratropium/Albuterol Neb 3 ML IH SCH ×4 (10:46→19:33)
[2020-04-10] MEDS: Furosemide 40 MG/4 ML VIAL IVP SCH ×2 (10:47→21:26)
[2020-04-10] MEDS: *HR* HYDROmorphone (PF) 1 MG/ML SYRINGE IVP PRN ×2 (10:48→15:21)
[2020-04-10] MEDS: MethylPREDNISolone 40 MG/ML VIAL IVP SCH ×2 (10:50→21:26)
[2020-04-10 10:57] LABS: Basophils % 0.3 %; Eosinophils # 0.1 K/mcL (0.0-0.6); Eosinophils % 1.5 %; Hematocrit 26.6 % (37.5-50.1); Hemoglobin 8.5 g/dL (12.9-16.9); Immature Granulocytes % 1.6 % (0-4); Lymphocytes # 0.8 K/mcL (0.6-4.6); Lymphocytes % 8.6 %; Mean Corpuscular Hemoglobin 34.8 pg (28.0-33.3); Mean Platelet Volume 9.9 fL (9.4-12.4); Monocytes # 0.8 K/mcL (0.0-1.3); Monocytes % 8.1 %; Neutrophils # 7.6 K/mcL (1.6-8.9); Nucleated Red Blood Cells 0.3 /100 WBC (0); Platelet Count 108 K/mcL (140-400); Red Blood Count 2.44 M/mcL (4.19-5.50); Red Cell Distribution Width 14.7 % (11.5-14.5); Segmented Neutrophils % 79.9 %; White Blood Count 9.5 K/mcL (4.3-11.1)
[2020-04-10 11:17] LABS: BUN/Creatinine Ratio 10 (6-26); Blood Urea Nitrogen 9 mg/dL (8-23); Calcium 8.3 mg/dL (8.6-10.3); Carbon Dioxide 27 mEq/L (23-29); Chloride 108 mEq/L (98-107); Glucose 173 mg/dL (70-105); Osmolality,Calculated 291 (280-300); Potassium 3.6 mEq/L (3.5-5.1); Sodium 139 mEq/L (136-145); eGFR For African Americans > 60 (> 60); eGFR For Non-African Americans > 60 (> 60)
[2020-04-10 11:20] LABS: INR 1.5; Prothrombin Time 17.1 Seconds (9.4-12.1)
[2020-04-10] MEDS: Budesonide/Formoterol 160/4.5 1 PUFF INH IH SCH ×2 (11:28→19:33)
[2020-04-10] MEDS ORDERED: *HR* Warfarin 5 MG TABLET PO ONE (18:00)
[2020-04-11] MEDS: Ipratropium/Albuterol Neb 3 ML IH SCH ×7 (00:08→23:38)
[2020-04-11] MEDS: Heparin 25,000UNIT/250ML 1/2NS 25,000 UNIT/250 ML IV.SOLN IVC SCH ×2 (00:46→20:33)
[2020-04-11 06:25] LABS: Basophils % 0.1 %; Hematocrit 26.3 % (37.5-50.1); Hemoglobin 8.4 g/dL (12.9-16.9); Immature Granulocytes % 2.5 % (0-4); Lymphocytes # 0.6 K/mcL (0.6-4.6); Lymphocytes % 5.2 %; Mean Corpuscular HGB Conc 31.9 g/dL (31.6-35.5); Mean Corpuscular Hemoglobin 34.4 pg (28.0-33.3); Mean Corpuscular Volume 107.8 fL (83.0-100.0); Mean Platelet Volume 10.1 fL (9.4-12.4); Monocytes # 0.6 K/mcL (0.0-1.3); Monocytes % 5.3 %; Neutrophils # 10.3 K/mcL (1.6-8.9); Nucleated Red Blood Cells 0.2 /100 WBC (0); Platelet Count 141 K/mcL (140-400); Red Blood Count 2.44 M/mcL (4.19-5.50); Red Cell Distribution Width 14.8 % (11.5-14.5); Segmented Neutrophils % 86.9 %; White Blood Count 11.8 K/mcL (4.3-11.1)
[2020-04-11 06:27] LABS: INR 1.6
[2020-04-11 06:44] LABS: BUN/Creatinine Ratio 13 (6-26); Blood Urea Nitrogen 14 mg/dL (8-23); Calcium 8.3 mg/dL (8.6-10.3); Carbon Dioxide 28 mEq/L (23-29); Chloride 105 mEq/L (98-107); Glucose 222 mg/dL (70-105); Osmolality,Calculated 295 (280-300); Potassium 4.3 mEq/L (3.5-5.1); Sodium 139 mEq/L (136-145); eGFR For African Americans > 60 (> 60); eGFR For Non-African Americans > 60 (> 60)
[2020-04-11 07:31] LABS: Phosphorous 3.5 mg/dL (2.7-4.5)
[2020-04-11] MEDS: Budesonide/Formoterol 160/4.5 1 PUFF INH IH SCH ×2 (07:37→19:51)
[2020-04-11] MEDS: Furosemide 40 MG/4 ML VIAL IVP SCH (08:49)
[2020-04-11] MEDS: MethylPREDNISolone 40 MG/ML VIAL IVP SCH (08:49)
[2020-04-11] MEDS: Sennosides/Docusate Sodium TABLET PO SCH ×2 (08:54→20:42)
[2020-04-11] MEDS ORDERED: *HR* Warfarin 5 MG TABLET PO ONE (18:00)
[2020-04-11] MEDS: Furosemide 40 MG TABLET PO SCH (20:42)
[2020-04-12] MEDS: Ipratropium/Albuterol Neb 3 ML IH SCH ×5 (04:07→19:42)
[2020-04-12 06:21] LABS: Basophils % 0.3 %; Eosinophils % 0.1 %; Hematocrit 28.8 % (37.5-50.1); Hemoglobin 9.2 g/dL (12.9-16.9); Immature Granulocytes % 2.8 % (0-4); Lymphocytes # 1.3 K/mcL (0.6-4.6); Lymphocytes % 9.8 %; Mean Corpuscular HGB Conc 31.9 g/dL (31.6-35.5); Mean Corpuscular Hemoglobin 33.7 pg (28.0-33.3); Mean Corpuscular Volume 105.5 fL (83.0-100.0); Mean Platelet Volume 9.7 fL (9.4-12.4); Monocytes % 7.1 %; Nucleated Red Blood Cells 0.4 /100 WBC (0); Platelet Count 190 K/mcL (140-400); Red Blood Count 2.73 M/mcL (4.19-5.50); Red Cell Distribution Width 15.5 % (11.5-14.5); Segmented Neutrophils % 79.9 %; White Blood Count 13.7 K/mcL (4.3-11.1)
[2020-04-12 06:23] LABS: INR 1.9; Prothrombin Time 21.6 Seconds (9.4-12.1)
[2020-04-12 07:05] LABS: BUN/Creatinine Ratio 19 (6-26); Blood Urea Nitrogen 21 mg/dL (8-23); Calcium 9.5 mg/dL (8.6-10.3); Carbon Dioxide 30 mEq/L (23-29); Chloride 100 mEq/L (98-107); Glucose 180 mg/dL (70-105); Osmolality,Calculated 296 (280-300); Potassium 3.2 mEq/L (3.5-5.1); Sodium 139 mEq/L (136-145); eGFR For African Americans > 60 (> 60); eGFR For Non-African Americans > 60 (> 60)
[2020-04-12] MEDS: Budesonide/Formoterol 160/4.5 1 PUFF INH IH SCH ×2 (07:37→19:43)
[2020-04-12] MEDS: Sennosides/Docusate Sodium TABLET PO SCH ×2 (08:15→20:31)
[2020-04-12] MEDS: predniSONE 20 MG TABLET PO SCH (08:16)
[2020-04-12] MEDS: Furosemide 40 MG TABLET PO SCH ×2 (08:16→20:31)
[2020-04-12] MEDS ORDERED: Potassium Chloride Elixir 20 MEQ/15 ML UDC PO SCH (15:00)
[2020-04-12] MEDS ORDERED: *HR* Warfarin 5 MG TABLET PO ONE (18:00)
[2020-04-12] MEDS: Primidone 50 MG TABLET PO SCH (20:31)
[2020-04-13] MEDS: Ipratropium/Albuterol Neb 3 ML IH SCH ×6 (00:28→20:11)
[2020-04-13 05:12] LABS: Basophils # 0.1 K/mcL (0.0-0.2); Basophils % 0.3 %; Eosinophils % 0.1 %; Hematocrit 31.7 % (37.5-50.1); Hemoglobin 10.5 g/dL (12.9-16.9); Immature Granulocytes % 2.1 % (0-4); Lymphocytes # 1.2 K/mcL (0.6-4.6); Lymphocytes % 8.4 %; Mean Corpuscular HGB Conc 33.1 g/dL (31.6-35.5); Mean Corpuscular Hemoglobin 35.2 pg (28.0-33.3); Mean Corpuscular Volume 106.4 fL (83.0-100.0); Mean Platelet Volume 9.8 fL (9.4-12.4); Monocytes # 1.1 K/mcL (0.0-1.3); Monocytes % 7.4 %; Neutrophils # 11.8 K/mcL (1.6-8.9); Nucleated Red Blood Cells 0.8 /100 WBC (0); Platelet Count 191 K/mcL (140-400); Red Blood Count 2.98 M/mcL (4.19-5.50); Red Cell Distribution Width 15.6 % (11.5-14.5); Segmented Neutrophils % 81.7 %; White Blood Count 14.5 K/mcL (4.3-11.1)
[2020-04-13 05:19] LABS: INR 1.8; Prothrombin Time 20.9 Seconds (9.4-12.1)
[2020-04-13 05:32] LABS: BUN/Creatinine Ratio 22 (6-26); Blood Urea Nitrogen 26 mg/dL (8-23); Calcium 10.3 mg/dL (8.6-10.3); Carbon Dioxide 30 mEq/L (23-29); Chloride 96 mEq/L (98-107); Glucose 193 mg/dL (70-105); Osmolality,Calculated 290 (280-300); Potassium 3.6 mEq/L (3.5-5.1); Sodium 135 mEq/L (136-145); eGFR For African Americans > 60 (> 60); eGFR For Non-African Americans 59 (> 60)
[2020-04-13] MEDS: Budesonide/Formoterol 160/4.5 1 PUFF INH IH SCH ×2 (07:23→20:11)
[2020-04-13] MEDS: Furosemide 40 MG TABLET PO SCH ×2 (09:00→20:09)
[2020-04-13] MEDS: Sennosides/Docusate Sodium TABLET PO SCH ×2 (09:00→09:03)
[2020-04-13] MEDS: predniSONE 20 MG TABLET PO SCH (09:00)
[2020-04-13] MEDS: Cholecalciferol (D-3) 1,000 UNIT (25MCG) TABLET PO SCH (09:00)
[2020-04-13] MEDS ORDERED: Sennosides/Docusate Sodium TABLET PO PRN (09:04)
[2020-04-13] MEDS ORDERED: *HR* Warfarin 7.5 MG TABLET PO ONE (18:00)
[2020-04-13] MEDS: Primidone 50 MG TABLET PO SCH (20:09)
[2020-04-14] MEDS: Ipratropium/Albuterol Neb 3 ML IH SCH ×3 (00:27→07:32)
[2020-04-14 03:17] LABS: INR 1.9
[2020-04-14 07:19] VITALS: BP 114/65
[2020-04-14] MEDS: Budesonide/Formoterol 160/4.5 1 PUFF INH IH SCH (07:32)
[2020-04-14] MEDS: Cholecalciferol (D-3) 1,000 UNIT (25MCG) TABLET PO SCH (09:50)
[2020-04-14] MEDS: predniSONE 20 MG TABLET PO SCH (09:50)
[2020-04-14] MEDS: Furosemide 40 MG TABLET PO SCH (09:51)
[2020-04-14] MEDS ORDERED: *HR* Warfarin 5 MG TABLET PO ONE (18:00)
== END 2020-04-14 11:28 | DRG 417 ==
LOC: 3ANU 14:45 → EMEROOARM 14:45 → SUATTDRO 20:25 → 3ANU 21:15
PROVIDERS: ADMIT Internal Medicine; ATTEND Internal Medicine

== ENCOUNTER 2021-08-02 13:16 | Inpatient (IN) ==
[2021-08-02] MEDS ORDERED: 0.9 % Sodium Chloride 500 ML IVC ONE (13:32)
[2021-08-02 13:57] LABS: Hematocrit 43.6 % (37.5-50.1); Hemoglobin 14.2 g/dL (12.9-16.9); Mean Corpuscular HGB Conc 32.6 g/dL (31.6-35.5); Mean Corpuscular Hemoglobin 34.1 pg (28.0-33.3); Mean Corpuscular Volume 104.6 fL (83.0-100.0); Mean Platelet Volume 10.1 fL (9.4-12.4); Platelet Count 134 K/mcL (140-400); Red Blood Count 4.17 M/mcL (4.19-5.50); Red Cell Distribution Width 14.3 % (11.5-14.5); White Blood Count 8.1 K/mcL (4.3-11.1)
[2021-08-02 14:24] LABS: Alanine Aminotransferase 20 Units/L (7-52); Albumin 4.1 g/dL (3.5-5.7); Albumin/Globulin Ratio 1.5 (1.1-2.2); Alkaline Phosphatase 71 Units/L (34-104); Aspartate Amino Transferase 25 Units/L (13-39); BUN/Creatinine Ratio 17 (6-26); Bilirubin,Direct 0.2 mg/dL (0.0-0.2); Bilirubin,Indirect 0.6 mg/dL (0.0-1.0); Bilirubin,Total 0.8 mg/dL (0.3-1.0); Blood Urea Nitrogen 21 mg/dL (8-23); Calcium 9.4 mg/dL (8.6-10.3); Carbon Dioxide 31 mEq/L (23-29); Chloride 94 mEq/L (98-107); Globulin 2.8 g/dL (2.4-3.5); Glucose 154 mg/dL (70-105); Osmolality,Calculated 284 (280-300); Potassium 3.8 mEq/L (3.5-5.1); Sodium 134 mEq/L (136-145); Total Protein 6.9 g/dL (6.4-8.9); Troponin I 0.03 ng/mL (< 0.04); eGFR For African Americans > 60 (> 60); eGFR For Non-African Americans 57 (> 60)
[2021-08-02 16:19] LABS: Bilirubin,Urine Negative (Negative); Blood,Urine Negative (Negative); Clarity,Urine Clear (Clear); Color,Urine Light-Yellow (Yellow); Glucose,Urine (UA) Normal (Normal); Ketones,Urine Negative (Negative); Leukocyte Esterase,Urine Negative (Negative); Nitrite,Urine Negative (Negative); PH,Urine 7.5 pH Units (5.0-8.0); Protein,Urine Negative (Neg-Trace); Specific Gravity,Urine 1.011 (1.010-1.025); Urobilinogen,Urine Normal (Normal)
[2021-08-02] MEDS ORDERED: Isovue-370 500 ML BOTTLE IVP ONE (16:48)
[2021-08-02 17:12] LABS: INR 2.2
[2021-08-02] MEDS ORDERED: Naloxone 0.4 MG/ML INJ IVP PRN (17:36)
[2021-08-02 19:20] LABS: Influenza A PCR Negative (Negative); Influenza B PCR Negative (Negative); Resp. Syncytial Virus PCR Negative (Negative)
[2021-08-02 19:21] LABS: SARS-CoV-2 by PCR (In House) Negative (Negative)
[2021-08-02] MEDS: Melatonin 3 MG TABLET PO PRN (21:10)
[2021-08-02] MEDS: Primidone 50 MG TABLET PO SCH (21:10)
[2021-08-03 04:55] LABS: Basophils % 0.6 %; Eosinophils # 0.1 K/mcL (0.0-0.6); Eosinophils % 0.8 %; Hematocrit 41.5 % (37.5-50.1); Hemoglobin 13.6 g/dL (12.9-16.9); Immature Granulocytes % 0.6 % (0-4); Lymphocytes # 1.1 K/mcL (0.6-4.6); Lymphocytes % 15.2 %; Mean Corpuscular HGB Conc 32.8 g/dL (31.6-35.5); Mean Corpuscular Hemoglobin 34.6 pg (28.0-33.3); Mean Corpuscular Volume 105.6 fL (83.0-100.0); Monocytes # 0.8 K/mcL (0.0-1.3); Monocytes % 11.6 %; Neutrophils # 5.2 K/mcL (1.6-8.9); Platelet Count 130 K/mcL (140-400); Red Blood Count 3.93 M/mcL (4.19-5.50); Red Cell Distribution Width 14.1 % (11.5-14.5); Segmented Neutrophils % 71.2 %; White Blood Count 7.2 K/mcL (4.3-11.1)
[2021-08-03 05:11] LABS: Alanine Aminotransferase 17 Units/L (7-52); Albumin 3.7 g/dL (3.5-5.7); Albumin/Globulin Ratio 1.5 (1.1-2.2); Alkaline Phosphatase 65 Units/L (34-104); Aspartate Amino Transferase 20 Units/L (13-39); BUN/Creatinine Ratio 16 (6-26); Bilirubin,Total 0.8 mg/dL (0.3-1.0); Blood Urea Nitrogen 17 mg/dL (8-23); Calcium 8.9 mg/dL (8.6-10.3); Carbon Dioxide 32 mEq/L (23-29); Chloride 98 mEq/L (98-107); Globulin 2.5 g/dL (2.4-3.5); Glucose 166 mg/dL (70-105); Magnesium 2.1 mg/dL (1.6-2.6); Osmolality,Calculated 287 (280-300); Phosphorous 2.7 mg/dL (2.7-4.5); Potassium 3.4 mEq/L (3.5-5.1); Sodium 136 mEq/L (136-145); Total Protein 6.2 g/dL (6.4-8.9); eGFR For African Americans > 60 (> 60); eGFR For Non-African Americans > 60 (> 60)
[2021-08-03] MEDS: Multivit/Ca/Min/Fe/FA 1 TAB TABLET PO SCH (08:40)
[2021-08-03] MEDS: Cholecalciferol (D-3) 1,000 UNIT (25MCG) TABLET PO SCH (08:40)
[2021-08-03 11:12] LABS: INR 1.9; Prothrombin Time 21.2 Seconds (9.4-12.1)
[2021-08-03] MEDS: Acyclovir 750 MG in D5% in Water 250 ML IVPB SCH (16:08)
[2021-08-03] MEDS: Primidone 50 MG TABLET PO SCH (20:07)
[2021-08-04] MEDS: Acyclovir 750 MG in D5% in Water 250 ML IVPB SCH ×4 (00:04→23:54)
[2021-08-04 08:08] LABS: Prothrombin Time 22.5 Seconds (9.4-12.1)
[2021-08-04 08:10] LABS: BUN/Creatinine Ratio 12 (6-26); Blood Urea Nitrogen 14 mg/dL (8-23); Calcium 8.7 mg/dL (8.6-10.3); Carbon Dioxide 27 mEq/L (23-29); Chloride 102 mEq/L (98-107); Glucose 172 mg/dL (70-105); Osmolality,Calculated 279 (280-300); Potassium 3.9 mEq/L (3.5-5.1); Sodium 132 mEq/L (136-145); eGFR For African Americans > 60 (> 60); eGFR For Non-African Americans > 60 (> 60)
[2021-08-04] MEDS: Multivit/Ca/Min/Fe/FA 1 TAB TABLET PO SCH (09:13)
[2021-08-04] MEDS: Cholecalciferol (D-3) 1,000 UNIT (25MCG) TABLET PO SCH (09:13)
[2021-08-04] MEDS: Methyl Salicylate/Menthol 85 APPL/85 GM TUBE TP PRN (10:26)
[2021-08-04] MEDS: Melatonin 3 MG TABLET PO PRN (21:09)
[2021-08-04] MEDS: Primidone 50 MG TABLET PO SCH (21:09)
[2021-08-05] MEDS: Multivit/Ca/Min/Fe/FA 1 TAB TABLET PO SCH (08:19)
[2021-08-05] MEDS: Acyclovir 750 MG in D5% in Water 250 ML IVPB SCH ×2 (08:20→16:20)
[2021-08-05] MEDS: Cholecalciferol (D-3) 1,000 UNIT (25MCG) TABLET PO SCH (08:20)
[2021-08-05 10:00] LABS: Mean Platelet Volume 10.2 fL (9.4-12.4); Red Cell Distribution Width 13.8 % (11.5-14.5)
[2021-08-05 10:02] LABS: Hematocrit 40.1 % (37.5-50.1); Hemoglobin 13.3 g/dL (12.9-16.9); Immature Platelets 3.4 % (1.1-6.1); Mean Corpuscular HGB Conc 33.2 g/dL (31.6-35.5); Mean Corpuscular Hemoglobin 34.5 pg (28.0-33.3); Mean Corpuscular Volume 103.9 fL (83.0-100.0); Red Blood Count 3.86 M/mcL (4.19-5.50); White Blood Count 10.4 K/mcL (4.3-11.1)
[2021-08-05 10:11] LABS: BUN/Creatinine Ratio 14 (6-26); Blood Urea Nitrogen 12 mg/dL (8-23); Calcium 8.7 mg/dL (8.6-10.3); Carbon Dioxide 26 mEq/L (23-29); Chloride 98 mEq/L (98-107); Glucose 223 mg/dL (70-105); Osmolality,Calculated 281 (280-300); Potassium 3.7 mEq/L (3.5-5.1); Sodium 132 mEq/L (136-145); eGFR For African Americans > 60 (> 60); eGFR For Non-African Americans > 60 (> 60)
[2021-08-05 10:15] LABS: INR 1.6
[2021-08-05] MEDS: cefTRIAXone 1,000 MG in 0.9 % Sodium Chloride Mini Bag 100 ML IVP SCH (11:44)
[2021-08-05 16:02] LABS: Vitamin B12 593 pg/mL (250-1100)
[2021-08-05] MEDS: Primidone 50 MG TABLET PO SCH (19:38)
[2021-08-05] MEDS: Melatonin 3 MG TABLET PO PRN (19:38)
[2021-08-06] MEDS: Acyclovir 750 MG in D5% in Water 250 ML IVPB SCH ×4 (00:34→23:48)
[2021-08-06] MEDS: Methyl Salicylate/Menthol 85 APPL/85 GM TUBE TP PRN (00:36)
[2021-08-06 05:31] LABS: BUN/Creatinine Ratio 13 (6-26); Blood Urea Nitrogen 12 mg/dL (8-23); Calcium 8.6 mg/dL (8.6-10.3); Carbon Dioxide 26 mEq/L (23-29); Chloride 98 mEq/L (98-107); Glucose 191 mg/dL (70-105); Osmolality,Calculated 281 (280-300); Potassium 3.5 mEq/L (3.5-5.1); Sodium 133 mEq/L (136-145); eGFR For African Americans > 60 (> 60); eGFR For Non-African Americans > 60 (> 60)
[2021-08-06 05:36] LABS: INR 1.6; Prothrombin Time 17.3 Seconds (9.4-12.1)
[2021-08-06] MEDS ORDERED: Azithromycin 250 MG TABLET PO ONE (08:20)
[2021-08-06] MEDS: cefTRIAXone 1,000 MG in 0.9 % Sodium Chloride Mini Bag 100 ML IVP SCH (09:12)
[2021-08-06] MEDS: Multivit/Ca/Min/Fe/FA 1 TAB TABLET PO SCH (09:13)
[2021-08-06] MEDS: Cholecalciferol (D-3) 1,000 UNIT (25MCG) TABLET PO SCH (09:13)
[2021-08-06 10:53] LABS: Adenovirus Not Detected (Not Detect); Bordetella Pertussis Not Detected (Not Detect); Chlamydophila pneumoniae Not Detected (Not Detect); Coronavirus 229E Not Detected (Not Detect); Coronavirus HKU1 Not Detected (Not Detect); Coronavirus NL63 Not Detected (Not Detect); Coronavirus OC43 Not Detected (Not Detect); Human Metapneumovirus Not Detected (Not Detect); Human Rhinovirus/Enterovirus Not Detected (Not Detect); Influenza A Subtype 2009 H1 Not Detected (Not Detect); Influenza B Not Detected (Not Detect); Mycoplasma pneumoniae Not Detected (Not Detect); Parainfluenza Virus 1 Not Detected (Not Detect); Parainfluenza Virus 2 Not Detected (Not Detect); Parainfluenza Virus 3 Not Detected (Not Detect); Parainfluenza Virus 4 Not Detected (Not Detect); Respiratory Syncytial Virus Not Detected (Not Detect); SARS-CoV-2 Not Detected (Not Detect)
[2021-08-06] MEDS: CLEAR EYES NATURAL TEARS 15 ML BOTTLE BOTH EYES SCH ×3 (13:38→21:05)
[2021-08-06] MEDS ORDERED: *HR* Warfarin 2.5 MG TABLET PO SCH (16:45)
[2021-08-06] MEDS ORDERED: Warfarin perPT PO PRN (18:00)
[2021-08-06] MEDS ORDERED: *HR* Warfarin 2.5 MG TABLET PO ONE (18:00)
[2021-08-06] MEDS: Primidone 50 MG TABLET PO SCH (21:05)
[2021-08-07 05:21] LABS: INR 1.3
[2021-08-07 05:23] LABS: BUN/Creatinine Ratio 13 (6-26); Blood Urea Nitrogen 12 mg/dL (8-23); Calcium 8.8 mg/dL (8.6-10.3); Carbon Dioxide 25 mEq/L (23-29); Chloride 100 mEq/L (98-107); Glucose 192 mg/dL (70-105); Osmolality,Calculated 277 (280-300); Potassium 3.7 mEq/L (3.5-5.1); Sodium 131 mEq/L (136-145); eGFR For African Americans > 60 (> 60); eGFR For Non-African Americans > 60 (> 60)
[2021-08-07] MEDS: Cholecalciferol (D-3) 1,000 UNIT (25MCG) TABLET PO SCH (08:43)
[2021-08-07] MEDS: Multivit/Ca/Min/Fe/FA 1 TAB TABLET PO SCH (08:43)
[2021-08-07] MEDS: cefTRIAXone 1,000 MG in 0.9 % Sodium Chloride Mini Bag 100 ML IVP SCH (08:44)
[2021-08-07] MEDS: Azithromycin 250 MG TABLET PO SCH (08:44)
[2021-08-07] MEDS: CLEAR EYES NATURAL TEARS 15 ML BOTTLE BOTH EYES SCH ×4 (08:45→22:11)
[2021-08-07] MEDS: Acetaminophen 325 MG TABLET PO PRN (10:28)
[2021-08-07] MEDS: Acyclovir 750 MG in D5% in Water 250 ML IVPB SCH ×2 (10:28→19:08)
[2021-08-07 16:51] LABS: Red Blood Cell,CSF < 2000 RBC/mcL
[2021-08-07 16:55] LABS: Glucose,CSF 108 mg/dL (40-70); Total Protein,CSF 108 mg/dL (15-45)
[2021-08-07] MEDS ORDERED: Vancomycin 1,500 MG/265 ML IV.SOLN IVPB ONE (17:24)
[2021-08-07 17:39] LABS: Appearance,CSF Clear (Clear); Basophils,CSF 0 %; Eosinophils,CSF 0 %
[2021-08-07] MEDS ORDERED: *HR* Warfarin 5 MG TABLET PO ONE (18:00)
[2021-08-07] MEDS: cefTRIAXone 2,000 MG in 0.9 % Sodium Chloride Mini Bag 100 ML IVPB SCH (22:11)
[2021-08-07] MEDS: Primidone 50 MG TABLET PO SCH (23:41)
[2021-08-08] MEDS: Acyclovir 750 MG in D5% in Water 250 ML IVPB SCH ×3 (04:09→18:11)
[2021-08-08 06:18] LABS: Basophils % 0.3 %; Eosinophils # 0.1 K/mcL (0.0-0.6); Eosinophils % 0.9 %; Hematocrit 37.9 % (37.5-50.1); Hemoglobin 12.9 g/dL (12.9-16.9); Immature Granulocytes % 0.5 % (0-4); Lymphocytes # 0.8 K/mcL (0.6-4.6); Lymphocytes % 7.5 %; Mean Corpuscular Hemoglobin 35.4 pg (28.0-33.3); Mean Corpuscular Volume 104.1 fL (83.0-100.0); Mean Platelet Volume 10.4 fL (9.4-12.4); Monocytes % 9.7 %; Neutrophils # 8.4 K/mcL (1.6-8.9); Platelet Count 182 K/mcL (140-400); Red Blood Count 3.64 M/mcL (4.19-5.50); Red Cell Distribution Width 13.7 % (11.5-14.5); Segmented Neutrophils % 81.1 %; White Blood Count 10.3 K/mcL (4.3-11.1)
[2021-08-08 06:24] LABS: INR 1.4; Prothrombin Time 15.8 Seconds (9.4-12.1)
[2021-08-08 06:40] LABS: BUN/Creatinine Ratio 13 (6-26); Blood Urea Nitrogen 12 mg/dL (8-23); Calcium 8.9 mg/dL (8.6-10.3); Carbon Dioxide 25 mEq/L (23-29); Chloride 101 mEq/L (98-107); Glucose 182 mg/dL (70-105); Osmolality,Calculated 284 (280-300); Potassium 3.7 mEq/L (3.5-5.1); Sodium 135 mEq/L (136-145); eGFR For African Americans > 60 (> 60); eGFR For Non-African Americans > 60 (> 60)
[2021-08-08] MEDS: Multivit/Ca/Min/Fe/FA 1 TAB TABLET PO SCH (09:05)
[2021-08-08] MEDS: cefTRIAXone 2,000 MG in 0.9 % Sodium Chloride Mini Bag 100 ML IVPB SCH (09:05)
[2021-08-08] MEDS: Cholecalciferol (D-3) 1,000 UNIT (25MCG) TABLET PO SCH (09:05)
[2021-08-08] MEDS: Azithromycin 250 MG TABLET PO SCH (09:05)
[2021-08-08] MEDS: CLEAR EYES NATURAL TEARS 15 ML BOTTLE BOTH EYES SCH ×4 (09:07→21:14)
[2021-08-08] MEDS ORDERED: *HR* Enoxaparin 40 MG/0.4 ML SYRINGE SQ ONE (12:38)
[2021-08-08] MEDS ORDERED: *HR* Warfarin 5 MG TABLET PO ONE (18:00)
[2021-08-08] MEDS: *HR* Enoxaparin 100 MG/ML SYRINGE SQ SCH (18:09)
[2021-08-08] MEDS ORDERED: Vancomycin 1,500 MG/265 ML IV.SOLN IVPB SCH (19:00)
[2021-08-08] MEDS: Primidone 50 MG TABLET PO SCH (21:13)
[2021-08-09] MEDS: Acyclovir 750 MG in D5% in Water 250 ML IVPB SCH ×3 (04:12→22:09)
[2021-08-09] MEDS: *HR* Enoxaparin 100 MG/ML SYRINGE SQ SCH ×2 (04:12→18:49)
[2021-08-09] MEDS ORDERED: *HR* Enoxaparin 40 MG/0.4 ML SYRINGE SQ SCH (06:00)
[2021-08-09] MEDS: Cholecalciferol (D-3) 1,000 UNIT (25MCG) TABLET PO SCH (09:49)
[2021-08-09] MEDS: CLEAR EYES NATURAL TEARS 15 ML BOTTLE BOTH EYES SCH ×4 (09:49→22:35)
[2021-08-09] MEDS: Multivit/Ca/Min/Fe/FA 1 TAB TABLET PO SCH (09:49)
[2021-08-09] MEDS: Azithromycin 250 MG TABLET PO SCH (09:49)
[2021-08-09 10:37] LABS: Basophils % 0.5 %; Eosinophils # 0.1 K/mcL (0.0-0.6); Eosinophils % 1.2 %; Hematocrit 37.8 % (37.5-50.1); Immature Granulocytes % 0.6 % (0-4); Lymphocytes # 0.8 K/mcL (0.6-4.6); Lymphocytes % 8.6 %; Mean Corpuscular HGB Conc 34.4 g/dL (31.6-35.5); Mean Corpuscular Hemoglobin 35.4 pg (28.0-33.3); Mean Platelet Volume 9.7 fL (9.4-12.4); Monocytes % 11.4 %; Neutrophils # 6.9 K/mcL (1.6-8.9); Platelet Count 191 K/mcL (140-400); Red Blood Count 3.67 M/mcL (4.19-5.50); Red Cell Distribution Width 13.7 % (11.5-14.5); Segmented Neutrophils % 77.7 %; White Blood Count 8.9 K/mcL (4.3-11.1)
[2021-08-09 10:44] LABS: INR 1.7; Prothrombin Time 18.9 Seconds (9.4-12.1)
[2021-08-09] MEDS ORDERED: Isovue-370 500 ML BOTTLE IVP ONE ×2 (10:55→11:16)
[2021-08-09 11:11] LABS: BUN/Creatinine Ratio 13 (6-26); Blood Urea Nitrogen 12 mg/dL (8-23); Calcium 8.9 mg/dL (8.6-10.3); Carbon Dioxide 25 mEq/L (23-29); Chloride 101 mEq/L (98-107); Glucose 195 mg/dL (70-105); Osmolality,Calculated 279 (280-300); Potassium 3.7 mEq/L (3.5-5.1); Sodium 132 mEq/L (136-145); eGFR For African Americans > 60 (> 60); eGFR For Non-African Americans > 60 (> 60)
[2021-08-09] MEDS ORDERED: *HR* Warfarin 2.5 MG TABLET PO ONE (18:00)
[2021-08-09] MEDS ORDERED: *HR* Metoprolol 5 MG/5 ML VIAL IVP ONE (18:21)
[2021-08-09] MEDS: Acetaminophen 325 MG TABLET PO PRN (18:49)
[2021-08-09 20:29] LABS: Adenovirus Not Detected (Not Detect); Bordetella Pertussis Not Detected (Not Detect); Chlamydophila pneumoniae Not Detected (Not Detect); Coronavirus 229E Not Detected (Not Detect); Coronavirus HKU1 Not Detected (Not Detect); Coronavirus NL63 Not Detected (Not Detect); Coronavirus OC43 Not Detected (Not Detect); Human Metapneumovirus Not Detected (Not Detect); Human Rhinovirus/Enterovirus Not Detected (Not Detect); Influenza A Subtype 2009 H1 Not Detected (Not Detect); Influenza B Not Detected (Not Detect); Parainfluenza Virus 1 Not Detected (Not Detect); Parainfluenza Virus 2 Not Detected (Not Detect); Parainfluenza Virus 3 Not Detected (Not Detect); Parainfluenza Virus 4 Not Detected (Not Detect); Respiratory Syncytial Virus Not Detected (Not Detect); SARS-CoV-2 Not Detected (Not Detect)
[2021-08-09 20:30] LABS: Mycoplasma pneumoniae Not Detected (Not Detect)
[2021-08-09] MEDS: Primidone 50 MG TABLET PO SCH (22:09)
[2021-08-09] MEDS: Methyl Salicylate/Menthol 85 APPL/85 GM TUBE TP PRN (22:10)
[2021-08-10 02:47] LABS: Basophils % 0.5 %; Eosinophils # 0.1 K/mcL (0.0-0.6); Eosinophils % 0.6 %; Hematocrit 36.7 % (37.5-50.1); Hemoglobin 12.2 g/dL (12.9-16.9); Immature Granulocytes % 0.6 % (0-4); Lymphocytes # 0.8 K/mcL (0.6-4.6); Lymphocytes % 8.5 %; Mean Corpuscular HGB Conc 33.2 g/dL (31.6-35.5); Mean Corpuscular Hemoglobin 34.8 pg (28.0-33.3); Mean Corpuscular Volume 104.6 fL (83.0-100.0); Monocytes # 1.2 K/mcL (0.0-1.3); Monocytes % 13.3 %; Neutrophils # 6.7 K/mcL (1.6-8.9); Platelet Count 194 K/mcL (140-400); Red Blood Count 3.51 M/mcL (4.19-5.50); Segmented Neutrophils % 76.5 %; White Blood Count 8.8 K/mcL (4.3-11.1)
[2021-08-10 02:54] LABS: INR 1.8
[2021-08-10 03:10] LABS: Alanine Aminotransferase 16 Units/L (7-52); Albumin 3.2 g/dL (3.5-5.7); Albumin/Globulin Ratio 1.2 (1.1-2.2); Alkaline Phosphatase 59 Units/L (34-104); Aspartate Amino Transferase 17 Units/L (13-39); BUN/Creatinine Ratio 15 (6-26); Bilirubin,Total 0.7 mg/dL (0.3-1.0); Blood Urea Nitrogen 15 mg/dL (8-23); Calcium 8.9 mg/dL (8.6-10.3); Carbon Dioxide 25 mEq/L (23-29); Chloride 102 mEq/L (98-107); Globulin 2.6 g/dL (2.4-3.5); Glucose 191 mg/dL (70-105); Osmolality,Calculated 284 (280-300); Potassium 3.8 mEq/L (3.5-5.1); Sodium 134 mEq/L (136-145); Total Protein 5.8 g/dL (6.4-8.9); eGFR For African Americans > 60 (> 60); eGFR For Non-African Americans > 60 (> 60)
[2021-08-10] MEDS: Acyclovir 750 MG in D5% in Water 250 ML IVPB SCH ×3 (06:40→21:11)
[2021-08-10] MEDS: *HR* Enoxaparin 100 MG/ML SYRINGE SQ SCH ×2 (06:40→18:28)
[2021-08-10 09:41] LABS: ANA IgG by ELISA NONE DETECTED (None Detected)
[2021-08-10] MEDS: Cholecalciferol (D-3) 1,000 UNIT (25MCG) TABLET PO SCH (09:48)
[2021-08-10] MEDS: Multivit/Ca/Min/Fe/FA 1 TAB TABLET PO SCH (09:48)
[2021-08-10] MEDS: Azithromycin 250 MG TABLET PO SCH (09:49)
[2021-08-10] MEDS: CLEAR EYES NATURAL TEARS 15 ML BOTTLE BOTH EYES SCH ×3 (17:30→21:20)
[2021-08-10] MEDS ORDERED: *HR* Warfarin 5 MG TABLET PO ONE (18:00)
[2021-08-10] MEDS: Primidone 50 MG TABLET PO SCH (21:11)
[2021-08-11] MEDS: Acyclovir 750 MG in D5% in Water 250 ML IVPB SCH ×3 (03:48→18:09)
[2021-08-11] MEDS: *HR* Enoxaparin 100 MG/ML SYRINGE SQ SCH ×2 (05:27→17:19)
[2021-08-11 06:50] LABS: Basophils % 0.5 %; Eosinophils # 0.2 K/mcL (0.0-0.6); Eosinophils % 2.1 %; Hematocrit 35.9 % (37.5-50.1); Hemoglobin 12.2 g/dL (12.9-16.9); Immature Granulocytes % 0.4 % (0-4); Lymphocytes # 0.8 K/mcL (0.6-4.6); Lymphocytes % 10.2 %; Mean Corpuscular Hemoglobin 35.4 pg (28.0-33.3); Mean Corpuscular Volume 104.1 fL (83.0-100.0); Mean Platelet Volume 10.1 fL (9.4-12.4); Monocytes # 0.8 K/mcL (0.0-1.3); Monocytes % 10.3 %; Neutrophils # 5.8 K/mcL (1.6-8.9); Platelet Count 203 K/mcL (140-400); Red Blood Count 3.45 M/mcL (4.19-5.50); Red Cell Distribution Width 13.7 % (11.5-14.5); Segmented Neutrophils % 76.5 %; White Blood Count 7.6 K/mcL (4.3-11.1)
[2021-08-11 06:52] LABS: INR 1.7; Prothrombin Time 19.3 Seconds (9.4-12.1)
[2021-08-11 07:13] LABS: Alanine Aminotransferase 15 Units/L (7-52); Albumin/Globulin Ratio 1.2 (1.1-2.2); Alkaline Phosphatase 55 Units/L (34-104); Aspartate Amino Transferase 15 Units/L (13-39); BUN/Creatinine Ratio 15 (6-26); Bilirubin,Total 0.6 mg/dL (0.3-1.0); Blood Urea Nitrogen 14 mg/dL (8-23); Calcium 8.7 mg/dL (8.6-10.3); Carbon Dioxide 25 mEq/L (23-29); Chloride 100 mEq/L (98-107); Globulin 2.5 g/dL (2.4-3.5); Glucose 200 mg/dL (70-105); Osmolality,Calculated 282 (280-300); Potassium 3.5 mEq/L (3.5-5.1); Sodium 133 mEq/L (136-145); Total Protein 5.5 g/dL (6.4-8.9); eGFR For African Americans > 60 (> 60); eGFR For Non-African Americans > 60 (> 60)
[2021-08-11] MEDS: Cholecalciferol (D-3) 1,000 UNIT (25MCG) TABLET PO SCH (10:08)
[2021-08-11] MEDS: Multivit/Ca/Min/Fe/FA 1 TAB TABLET PO SCH (10:08)
[2021-08-11] MEDS: CLEAR EYES NATURAL TEARS 15 ML BOTTLE BOTH EYES SCH ×4 (10:09→20:38)
[2021-08-11 10:44] LABS: Estimated Average Glucose 151 mg/dl; Hemoglobin A1C 6.9 %
[2021-08-11] MEDS ORDERED: *HR* Warfarin 2.5 MG TABLET PO SCH (16:33)
[2021-08-11] MEDS ORDERED: *HR* Warfarin 5 MG TABLET PO ONE (18:00)
[2021-08-11] MEDS: Primidone 50 MG TABLET PO SCH (20:38)
[2021-08-11] MEDS: Melatonin 3 MG TABLET PO PRN (20:38)
[2021-08-12 02:21] LABS: Basophils # 0.1 K/mcL (0.0-0.2); Basophils % 0.7 %; Eosinophils # 0.2 K/mcL (0.0-0.6); Eosinophils % 2.9 %; Hematocrit 37.1 % (37.5-50.1); Immature Granulocytes % 0.7 % (0-4); Lymphocytes # 0.9 K/mcL (0.6-4.6); Lymphocytes % 12.4 %; Mean Corpuscular HGB Conc 32.3 g/dL (31.6-35.5); Mean Corpuscular Hemoglobin 34.2 pg (28.0-33.3); Mean Corpuscular Volume 105.7 fL (83.0-100.0); Mean Platelet Volume 9.7 fL (9.4-12.4); Monocytes # 0.6 K/mcL (0.0-1.3); Monocytes % 9.2 %; Neutrophils # 5.1 K/mcL (1.6-8.9); Platelet Count 215 K/mcL (140-400); Red Blood Count 3.51 M/mcL (4.19-5.50); Segmented Neutrophils % 74.1 %; White Blood Count 6.9 K/mcL (4.3-11.1)
[2021-08-12 02:33] LABS: Alanine Aminotransferase 18 Units/L (7-52); Albumin/Globulin Ratio 1.1 (1.1-2.2); Alkaline Phosphatase 55 Units/L (34-104); Aspartate Amino Transferase 16 Units/L (13-39); BUN/Creatinine Ratio 17 (6-26); Bilirubin,Total 0.5 mg/dL (0.3-1.0); Blood Urea Nitrogen 15 mg/dL (8-23); Calcium 8.7 mg/dL (8.6-10.3); Carbon Dioxide 27 mEq/L (23-29); Chloride 101 mEq/L (98-107); Globulin 2.7 g/dL (2.4-3.5); Glucose 157 mg/dL (70-105); Osmolality,Calculated 282 (280-300); Potassium 3.6 mEq/L (3.5-5.1); Sodium 134 mEq/L (136-145); Total Protein 5.7 g/dL (6.4-8.9); eGFR For African Americans > 60 (> 60); eGFR For Non-African Americans > 60 (> 60)
[2021-08-12 02:38] LABS: INR 1.9; Prothrombin Time 21.3 Seconds (9.4-12.1)
[2021-08-12] MEDS: Acyclovir 750 MG in D5% in Water 250 ML IVPB SCH ×3 (03:55→16:58)
[2021-08-12] MEDS: *HR* Enoxaparin 100 MG/ML SYRINGE SQ SCH ×2 (05:33→16:58)
[2021-08-12] MEDS: Multivit/Ca/Min/Fe/FA 1 TAB TABLET PO SCH (09:39)
[2021-08-12] MEDS: Cholecalciferol (D-3) 1,000 UNIT (25MCG) TABLET PO SCH (09:39)
[2021-08-12] MEDS: CLEAR EYES NATURAL TEARS 15 ML BOTTLE BOTH EYES SCH ×4 (09:39→20:29)
[2021-08-12] MEDS ORDERED: *HR* Warfarin 5 MG TABLET PO ONE (18:00)
[2021-08-12] MEDS: Primidone 50 MG TABLET PO SCH (20:29)
[2021-08-13 01:09] LABS: Basophils % 0.5 %; Eosinophils # 0.2 K/mcL (0.0-0.6); Eosinophils % 2.8 %; Hematocrit 38.5 % (37.5-50.1); Hemoglobin 12.7 g/dL (12.9-16.9); Immature Granulocytes % 0.7 % (0-4); Lymphocytes # 0.8 K/mcL (0.6-4.6); Lymphocytes % 11.1 %; Mean Corpuscular Volume 106.1 fL (83.0-100.0); Mean Platelet Volume 9.1 fL (9.4-12.4); Monocytes # 0.6 K/mcL (0.0-1.3); Monocytes % 8.2 %; Neutrophils # 5.7 K/mcL (1.6-8.9); Platelet Count 222 K/mcL (140-400); Red Blood Count 3.63 M/mcL (4.19-5.50); Red Cell Distribution Width 13.8 % (11.5-14.5); Segmented Neutrophils % 76.7 %; White Blood Count 7.4 K/mcL (4.3-11.1)
[2021-08-13 01:18] LABS: INR 2.5
[2021-08-13 01:30] LABS: Alanine Aminotransferase 18 Units/L (7-52); Albumin 3.1 g/dL (3.5-5.7); Albumin/Globulin Ratio 1.1 (1.1-2.2); Alkaline Phosphatase 55 Units/L (34-104); Aspartate Amino Transferase 15 Units/L (13-39); BUN/Creatinine Ratio 14 (6-26); Bilirubin,Total 0.5 mg/dL (0.3-1.0); Blood Urea Nitrogen 13 mg/dL (8-23); Calcium 8.8 mg/dL (8.6-10.3); Carbon Dioxide 27 mEq/L (23-29); Chloride 105 mEq/L (98-107); Globulin 2.8 g/dL (2.4-3.5); Glucose 155 mg/dL (70-105); Osmolality,Calculated 285 (280-300); Potassium 3.8 mEq/L (3.5-5.1); Sodium 136 mEq/L (136-145); Total Protein 5.9 g/dL (6.4-8.9); eGFR For African Americans > 60 (> 60); eGFR For Non-African Americans > 60 (> 60)
[2021-08-13] MEDS: Acyclovir 750 MG in D5% in Water 250 ML IVPB SCH ×2 (03:39→11:37)
[2021-08-13] MEDS: *HR* Enoxaparin 100 MG/ML SYRINGE SQ SCH (06:08)
[2021-08-13] MEDS: Cholecalciferol (D-3) 1,000 UNIT (25MCG) TABLET PO SCH (09:13)
[2021-08-13] MEDS: Multivit/Ca/Min/Fe/FA 1 TAB TABLET PO SCH (09:13)
[2021-08-13] MEDS: CLEAR EYES NATURAL TEARS 15 ML BOTTLE BOTH EYES SCH ×4 (09:19→20:24)
[2021-08-13] MEDS: PRESERVISION VIT PO SCH (09:19)
[2021-08-13] MEDS: Acetaminophen 325 MG TABLET PO PRN (17:41)
[2021-08-13] MEDS ORDERED: *HR* Warfarin 2.5 MG TABLET PO ONE (18:00)
[2021-08-13] MEDS: Primidone 50 MG TABLET PO SCH (20:23)
[2021-08-14 03:00] LABS: Basophils % 0.5 %; Eosinophils # 0.2 K/mcL (0.0-0.6); Eosinophils % 2.2 %; Hematocrit 40.5 % (37.5-50.1); Hemoglobin 13.2 g/dL (12.9-16.9); Immature Granulocytes % 0.5 % (0-4); Lymphocytes # 0.8 K/mcL (0.6-4.6); Lymphocytes % 10.9 %; Mean Corpuscular HGB Conc 32.6 g/dL (31.6-35.5); Mean Corpuscular Hemoglobin 34.6 pg (28.0-33.3); Mean Platelet Volume 9.5 fL (9.4-12.4); Monocytes # 0.6 K/mcL (0.0-1.3); Monocytes % 8.5 %; Neutrophils # 5.8 K/mcL (1.6-8.9); Platelet Count 219 K/mcL (140-400); Red Blood Count 3.82 M/mcL (4.19-5.50); Red Cell Distribution Width 13.9 % (11.5-14.5); Segmented Neutrophils % 77.4 %; White Blood Count 7.4 K/mcL (4.3-11.1)
[2021-08-14 03:05] LABS: INR 2.4; Prothrombin Time 26.6 Seconds (9.4-12.1)
[2021-08-14 03:21] LABS: Alanine Aminotransferase 20 Units/L (7-52); Albumin 3.2 g/dL (3.5-5.7); Albumin/Globulin Ratio 1.1 (1.1-2.2); Alkaline Phosphatase 60 Units/L (34-104); Aspartate Amino Transferase 18 Units/L (13-39); BUN/Creatinine Ratio 18 (6-26); Bilirubin,Total 0.5 mg/dL (0.3-1.0); Blood Urea Nitrogen 16 mg/dL (8-23); Calcium 8.9 mg/dL (8.6-10.3); Carbon Dioxide 26 mEq/L (23-29); Chloride 106 mEq/L (98-107); Globulin 2.8 g/dL (2.4-3.5); Glucose 163 mg/dL (70-105); Osmolality,Calculated 287 (280-300); Potassium 3.7 mEq/L (3.5-5.1); Sodium 136 mEq/L (136-145); eGFR For African Americans > 60 (> 60); eGFR For Non-African Americans > 60 (> 60)
[2021-08-14 09:26] LABS: California Encephalitis IgM < 1:16 (< 1:16); E.Equine Encephalitis IgM < 1:16 (< 1:16); St. Louis Encephalitis IgM < 1:16 (< 1:16); W.Equine Encephalitis IgM < 1:16 (< 1:16)
[2021-08-14] MEDS ORDERED: D5% in Water 1,000 ML IVC PRN (09:43)
[2021-08-14] MEDS ORDERED: Dextrose Gel 15 GM/37.5 ML TUBE PO PRN ×2 (09:43)
[2021-08-14] MEDS ORDERED: *HR* Dextrose 50 % in Water (Syg) 50 ML SYRINGE IVP PRN (09:43)
[2021-08-14] MEDS: Multivit/Ca/Min/Fe/FA 1 TAB TABLET PO SCH (10:43)
[2021-08-14] MEDS: Cholecalciferol (D-3) 1,000 UNIT (25MCG) TABLET PO SCH (10:43)
[2021-08-14] MEDS: PRESERVISION VIT PO SCH (10:43)
[2021-08-14] MEDS: CLEAR EYES NATURAL TEARS 15 ML BOTTLE BOTH EYES SCH ×4 (11:30→20:13)
[2021-08-14] MEDS: Insulin LISPRO 300 UNITS/3 ML VIAL SUBQ SCH ×2 (11:30→16:55)
[2021-08-14] MEDS ORDERED: *HR* Warfarin 2.5 MG TABLET PO ONE (18:00)
[2021-08-14] MEDS: Primidone 50 MG TABLET PO SCH (20:13)
[2021-08-15 05:45] LABS: Basophils # 0.1 K/mcL (0.0-0.2); Basophils % 0.6 %; Eosinophils # 0.1 K/mcL (0.0-0.6); Eosinophils % 1.2 %; Hematocrit 41.3 % (37.5-50.1); Hemoglobin 13.2 g/dL (12.9-16.9); Immature Granulocytes % 0.7 % (0-4); Lymphocytes # 0.8 K/mcL (0.6-4.6); Lymphocytes % 9.9 %; Mean Corpuscular Hemoglobin 34.1 pg (28.0-33.3); Mean Corpuscular Volume 106.7 fL (83.0-100.0); Mean Platelet Volume 9.4 fL (9.4-12.4); Monocytes # 0.8 K/mcL (0.0-1.3); Monocytes % 9.9 %; Neutrophils # 6.4 K/mcL (1.6-8.9); Platelet Count 230 K/mcL (140-400); Red Blood Count 3.87 M/mcL (4.19-5.50); Red Cell Distribution Width 14.2 % (11.5-14.5); Segmented Neutrophils % 77.7 %; White Blood Count 8.3 K/mcL (4.3-11.1)
[2021-08-15 05:57] LABS: INR 2.9; Prothrombin Time 32.6 Seconds (9.4-12.1)
[2021-08-15 06:01] LABS: Alanine Aminotransferase 22 Units/L (7-52); Albumin 3.4 g/dL (3.5-5.7); Albumin/Globulin Ratio 1.2 (1.1-2.2); Alkaline Phosphatase 67 Units/L (34-104); Aspartate Amino Transferase 19 Units/L (13-39); BUN/Creatinine Ratio 18 (6-26); Bilirubin,Total 0.5 mg/dL (0.3-1.0); Blood Urea Nitrogen 19 mg/dL (8-23); Calcium 9.1 mg/dL (8.6-10.3); Carbon Dioxide 27 mEq/L (23-29); Chloride 105 mEq/L (98-107); Globulin 2.8 g/dL (2.4-3.5); Glucose 160 mg/dL (70-105); Osmolality,Calculated 292 (280-300); Potassium 3.8 mEq/L (3.5-5.1); Sodium 138 mEq/L (136-145); Total Protein 6.2 g/dL (6.4-8.9); eGFR For African Americans > 60 (> 60); eGFR For Non-African Americans > 60 (> 60)
[2021-08-15] MEDS: Insulin LISPRO 300 UNITS/3 ML VIAL SUBQ SCH ×3 (10:12→17:49)
[2021-08-15] MEDS: Multivit/Ca/Min/Fe/FA 1 TAB TABLET PO SCH (10:13)
[2021-08-15] MEDS: PRESERVISION VIT PO SCH (10:13)
[2021-08-15] MEDS: CLEAR EYES NATURAL TEARS 15 ML BOTTLE BOTH EYES SCH ×4 (10:13→20:06)
[2021-08-15] MEDS: Cholecalciferol (D-3) 1,000 UNIT (25MCG) TABLET PO SCH (10:13)
[2021-08-15] MEDS: Acyclovir 750 MG in D5% in Water 250 ML IVPB SCH ×2 (14:46→20:06)
[2021-08-15] MEDS ORDERED: *HR* Warfarin 2.5 MG TABLET PO ONE (18:00)
[2021-08-15] MEDS: Melatonin 3 MG TABLET PO PRN (20:06)
[2021-08-15] MEDS: Primidone 50 MG TABLET PO SCH (20:06)
[2021-08-16 02:08] LABS: Hematocrit 39.3 % (37.5-50.1); Hemoglobin 12.8 g/dL (12.9-16.9); Mean Corpuscular HGB Conc 32.6 g/dL (31.6-35.5); Mean Corpuscular Hemoglobin 34.9 pg (28.0-33.3); Mean Corpuscular Volume 107.1 fL (83.0-100.0); Platelet Count 232 K/mcL (140-400); Red Blood Count 3.67 M/mcL (4.19-5.50); Red Cell Distribution Width 14.3 % (11.5-14.5); White Blood Count 7.6 K/mcL (4.3-11.1)
[2021-08-16 02:26] LABS: BUN/Creatinine Ratio 20 (6-26); Blood Urea Nitrogen 19 mg/dL (8-23); Calcium 8.9 mg/dL (8.6-10.3); Carbon Dioxide 26 mEq/L (23-29); Chloride 107 mEq/L (98-107); Glucose 161 mg/dL (70-105); Osmolality,Calculated 288 (280-300); Potassium 3.8 mEq/L (3.5-5.1); Sodium 136 mEq/L (136-145); eGFR For African Americans > 60 (> 60); eGFR For Non-African Americans > 60 (> 60)
[2021-08-16 02:27] LABS: INR 2.4
[2021-08-16] MEDS: Acyclovir 750 MG in D5% in Water 250 ML IVPB SCH ×3 (04:31→20:08)
[2021-08-16 09:09] LABS: HSV Source CSF
[2021-08-16] MEDS: Cholecalciferol (D-3) 1,000 UNIT (25MCG) TABLET PO SCH (10:07)
[2021-08-16] MEDS: Acetaminophen 325 MG TABLET PO PRN (10:07)
[2021-08-16] MEDS: Multivit/Ca/Min/Fe/FA 1 TAB TABLET PO SCH (10:07)
[2021-08-16] MEDS: PRESERVISION VIT PO SCH (10:08)
[2021-08-16] MEDS: Insulin LISPRO 300 UNITS/3 ML VIAL SUBQ SCH ×3 (10:08→17:29)
[2021-08-16] MEDS: CLEAR EYES NATURAL TEARS 15 ML BOTTLE BOTH EYES SCH ×4 (10:08→20:08)
[2021-08-16 11:09] LABS: Cytomegalovirus DNA (PCR) NOT DETECTED
[2021-08-16] MEDS: Carbidopa/Levodopa 25/100 TABLET PO SCH ×3 (12:10→20:08)
[2021-08-16] MEDS ORDERED: *HR* Warfarin 2.5 MG TABLET PO ONE (18:00)
[2021-08-16] MEDS: Primidone 50 MG TABLET PO SCH (20:07)
[2021-08-17 02:34] LABS: Basophils % 0.4 %; Eosinophils # 0.1 K/mcL (0.0-0.6); Hematocrit 39.5 % (37.5-50.1); Hemoglobin 13.1 g/dL (12.9-16.9); Immature Granulocytes % 0.8 % (0-4); Lymphocytes # 0.8 K/mcL (0.6-4.6); Lymphocytes % 8.9 %; Mean Corpuscular HGB Conc 33.2 g/dL (31.6-35.5); Mean Corpuscular Hemoglobin 35.9 pg (28.0-33.3); Mean Corpuscular Volume 108.2 fL (83.0-100.0); Mean Platelet Volume 9.8 fL (9.4-12.4); Monocytes # 0.9 K/mcL (0.0-1.3); Monocytes % 9.9 %; Neutrophils # 7.3 K/mcL (1.6-8.9); Platelet Count 223 K/mcL (140-400); Red Blood Count 3.65 M/mcL (4.19-5.50); Red Cell Distribution Width 14.2 % (11.5-14.5); White Blood Count 9.2 K/mcL (4.3-11.1)
[2021-08-17 02:38] LABS: INR 2.1; Prothrombin Time 22.9 Seconds (9.4-12.1)
[2021-08-17 02:54] LABS: BUN/Creatinine Ratio 18 (6-26); Blood Urea Nitrogen 16 mg/dL (8-23); Calcium 8.8 mg/dL (8.6-10.3); Carbon Dioxide 27 mEq/L (23-29); Chloride 104 mEq/L (98-107); Glucose 155 mg/dL (70-105); Osmolality,Calculated 280 (280-300); Potassium 3.7 mEq/L (3.5-5.1); Sodium 133 mEq/L (136-145); eGFR For African Americans > 60 (> 60); eGFR For Non-African Americans > 60 (> 60)
[2021-08-17] MEDS: Acyclovir 750 MG in D5% in Water 250 ML IVPB SCH ×3 (05:23→21:17)
[2021-08-17] MEDS: Insulin LISPRO 300 UNITS/3 ML VIAL SUBQ SCH ×4 (07:14→16:37)
[2021-08-17] MEDS: Cholecalciferol (D-3) 1,000 UNIT (25MCG) TABLET PO SCH (07:19)
[2021-08-17] MEDS: Carbidopa/Levodopa 25/100 TABLET PO SCH (07:19)
[2021-08-17] MEDS: Multivit/Ca/Min/Fe/FA 1 TAB TABLET PO SCH (07:19)
[2021-08-17] MEDS: PRESERVISION VIT PO SCH (07:20)
[2021-08-17] MEDS: CLEAR EYES NATURAL TEARS 15 ML BOTTLE BOTH EYES SCH ×4 (07:20→21:29)
[2021-08-17] MEDS: Thiamine (B-1) 100 MG TABLET PO SCH (16:37)
[2021-08-17] MEDS: Carbidopa/Levodopa 25/250 TABLET PO SCH ×2 (16:37→21:18)
[2021-08-17] MEDS: Primidone 50 MG TABLET PO SCH (21:18)
[2021-08-18 04:56] LABS: Basophils % 0.4 %; Eosinophils # 0.2 K/mcL (0.0-0.6); Eosinophils % 1.9 %; Hematocrit 40.2 % (37.5-50.1); Hemoglobin 13.7 g/dL (12.9-16.9); Immature Granulocytes % 0.4 % (0-4); Lymphocytes # 1.2 K/mcL (0.6-4.6); Lymphocytes % 15.4 %; Mean Corpuscular HGB Conc 34.1 g/dL (31.6-35.5); Mean Corpuscular Hemoglobin 36.3 pg (28.0-33.3); Mean Corpuscular Volume 106.6 fL (83.0-100.0); Mean Platelet Volume 10.2 fL (9.4-12.4); Monocytes # 0.9 K/mcL (0.0-1.3); Monocytes % 11.7 %; Neutrophils # 5.4 K/mcL (1.6-8.9); Platelet Count 223 K/mcL (140-400); Red Blood Count 3.77 M/mcL (4.19-5.50); Red Cell Distribution Width 14.3 % (11.5-14.5); Segmented Neutrophils % 70.2 %; White Blood Count 7.7 K/mcL (4.3-11.1)
[2021-08-18 05:05] LABS: INR 1.7; Prothrombin Time 19.2 Seconds (9.4-12.1)
[2021-08-18 05:10] LABS: BUN/Creatinine Ratio 18 (6-26); Blood Urea Nitrogen 17 mg/dL (8-23); Calcium 9.2 mg/dL (8.6-10.3); Carbon Dioxide 27 mEq/L (23-29); Chloride 102 mEq/L (98-107); Glucose 143 mg/dL (70-105); Osmolality,Calculated 284 (280-300); Potassium 4.2 mEq/L (3.5-5.1); Sodium 135 mEq/L (136-145); eGFR For African Americans > 60 (> 60); eGFR For Non-African Americans > 60 (> 60)
[2021-08-18] MEDS: Acyclovir 750 MG in D5% in Water 250 ML IVPB SCH ×3 (06:40→21:43)
[2021-08-18] MEDS: Insulin LISPRO 300 UNITS/3 ML VIAL SUBQ SCH ×3 (08:24→17:41)
[2021-08-18] MEDS: Thiamine (B-1) 100 MG TABLET PO SCH (08:43)
[2021-08-18] MEDS: Carbidopa/Levodopa 25/250 TABLET PO SCH ×3 (08:43→21:43)
[2021-08-18] MEDS: Multivit/Ca/Min/Fe/FA 1 TAB TABLET PO SCH (08:43)
[2021-08-18] MEDS: Cholecalciferol (D-3) 1,000 UNIT (25MCG) TABLET PO SCH (08:43)
[2021-08-18] MEDS: CLEAR EYES NATURAL TEARS 15 ML BOTTLE BOTH EYES SCH ×4 (08:43→21:43)
[2021-08-18] MEDS: PRESERVISION VIT PO SCH (08:44)
[2021-08-18] MEDS: Primidone 50 MG TABLET PO SCH (21:43)
[2021-08-19 05:56] LABS: Basophils % 0.5 %; Eosinophils # 0.2 K/mcL (0.0-0.6); Eosinophils % 2.2 %; Hematocrit 40.6 % (37.5-50.1); Hemoglobin 13.6 g/dL (12.9-16.9); Immature Granulocytes % 0.4 % (0-4); Lymphocytes # 0.8 K/mcL (0.6-4.6); Mean Corpuscular HGB Conc 33.5 g/dL (31.6-35.5); Mean Corpuscular Hemoglobin 35.3 pg (28.0-33.3); Mean Corpuscular Volume 105.5 fL (83.0-100.0); Mean Platelet Volume 9.6 fL (9.4-12.4); Monocytes # 0.7 K/mcL (0.0-1.3); Monocytes % 8.9 %; Neutrophils # 6.5 K/mcL (1.6-8.9); Platelet Count 223 K/mcL (140-400); Red Blood Count 3.85 M/mcL (4.19-5.50); Red Cell Distribution Width 14.2 % (11.5-14.5); White Blood Count 8.3 K/mcL (4.3-11.1)
[2021-08-19 06:01] LABS: INR 1.5; Prothrombin Time 17.2 Seconds (9.4-12.1)
[2021-08-19] MEDS: Acetaminophen 325 MG TABLET PO PRN (06:09)
[2021-08-19] MEDS: Acyclovir 750 MG in D5% in Water 250 ML IVPB SCH ×3 (06:09→20:33)
[2021-08-19 06:16] LABS: BUN/Creatinine Ratio 17 (6-26); Blood Urea Nitrogen 14 mg/dL (8-23); Calcium 9.1 mg/dL (8.6-10.3); Carbon Dioxide 26 mEq/L (23-29); Chloride 102 mEq/L (98-107); Glucose 154 mg/dL (70-105); Osmolality,Calculated 282 (280-300); Potassium 3.9 mEq/L (3.5-5.1); Sodium 134 mEq/L (136-145); eGFR For African Americans > 60 (> 60); eGFR For Non-African Americans > 60 (> 60)
[2021-08-19] MEDS: Multivit/Ca/Min/Fe/FA 1 TAB TABLET PO SCH (09:13)
[2021-08-19] MEDS: Cholecalciferol (D-3) 1,000 UNIT (25MCG) TABLET PO SCH (09:14)
[2021-08-19] MEDS: Carbidopa/Levodopa 25/250 TABLET PO SCH ×3 (09:14→20:33)
[2021-08-19] MEDS: Thiamine (B-1) 100 MG TABLET PO SCH (09:14)
[2021-08-19] MEDS: CLEAR EYES NATURAL TEARS 15 ML BOTTLE BOTH EYES SCH ×4 (09:14→20:41)
[2021-08-19] MEDS: Insulin LISPRO 300 UNITS/3 ML VIAL SUBQ SCH ×3 (09:15→16:40)
[2021-08-19] MEDS: PRESERVISION VIT PO SCH (09:16)
[2021-08-19] MEDS: Primidone 50 MG TABLET PO SCH (20:33)
[2021-08-20] MEDS: Acyclovir 750 MG in D5% in Water 250 ML IVPB SCH (05:43)
[2021-08-20 07:09] LABS: INR 1.5; Prothrombin Time 16.8 Seconds (9.4-12.1)
[2021-08-20 07:19] LABS: BUN/Creatinine Ratio 13 (6-26); Blood Urea Nitrogen 12 mg/dL (8-23); Calcium 9.1 mg/dL (8.6-10.3); Carbon Dioxide 27 mEq/L (23-29); Chloride 102 mEq/L (98-107); Glucose 143 mg/dL (70-105); Osmolality,Calculated 282 (280-300); Potassium 3.9 mEq/L (3.5-5.1); Sodium 135 mEq/L (136-145); eGFR For African Americans > 60 (> 60); eGFR For Non-African Americans > 60 (> 60)
[2021-08-20] MEDS: Insulin LISPRO 300 UNITS/3 ML VIAL SUBQ SCH ×3 (09:23→17:07)
[2021-08-20] MEDS: Carbidopa/Levodopa 25/250 TABLET PO SCH ×3 (09:23→20:29)
[2021-08-20] MEDS: Cholecalciferol (D-3) 1,000 UNIT (25MCG) TABLET PO SCH (09:24)
[2021-08-20] MEDS: Thiamine (B-1) 100 MG TABLET PO SCH (09:24)
[2021-08-20] MEDS: Multivit/Ca/Min/Fe/FA 1 TAB TABLET PO SCH (09:24)
[2021-08-20] MEDS: CLEAR EYES NATURAL TEARS 15 ML BOTTLE BOTH EYES SCH ×4 (09:24→20:26)
[2021-08-20] MEDS: PRESERVISION VIT PO SCH (09:24)
[2021-08-20] MEDS ORDERED: *HR* Warfarin 2.5 MG TABLET PO ONE (18:00)
[2021-08-20] MEDS ORDERED: Warfarin perPT PO PRN (18:00)
[2021-08-20] MEDS: Primidone 50 MG TABLET PO SCH (20:26)
[2021-08-21 02:25] LABS: Basophils % 0.6 %; Eosinophils # 0.1 K/mcL (0.0-0.6); Eosinophils % 1.8 %; Hematocrit 39.3 % (37.5-50.1); Hemoglobin 13.6 g/dL (12.9-16.9); Immature Granulocytes % 0.4 % (0-4); Lymphocytes % 13.3 %; Mean Corpuscular HGB Conc 34.6 g/dL (31.6-35.5); Mean Corpuscular Hemoglobin 36.7 pg (28.0-33.3); Mean Corpuscular Volume 105.9 fL (83.0-100.0); Mean Platelet Volume 9.9 fL (9.4-12.4); Monocytes # 0.7 K/mcL (0.0-1.3); Monocytes % 9.6 %; Neutrophils # 5.4 K/mcL (1.6-8.9); Platelet Count 259 K/mcL (140-400); Red Blood Count 3.71 M/mcL (4.19-5.50); Red Cell Distribution Width 14.4 % (11.5-14.5); Segmented Neutrophils % 74.3 %; White Blood Count 7.2 K/mcL (4.3-11.1)
[2021-08-21 02:32] LABS: INR 1.4; Prothrombin Time 15.4 Seconds (9.4-12.1)
[2021-08-21 02:40] LABS: BUN/Creatinine Ratio 18 (6-26); Blood Urea Nitrogen 15 mg/dL (8-23); Calcium 9.1 mg/dL (8.6-10.3); Carbon Dioxide 27 mEq/L (23-29); Chloride 104 mEq/L (98-107); Glucose 139 mg/dL (70-105); Osmolality,Calculated 285 (280-300); Potassium 3.9 mEq/L (3.5-5.1); Sodium 136 mEq/L (136-145); eGFR For African Americans > 60 (> 60); eGFR For Non-African Americans > 60 (> 60)
[2021-08-21] MEDS: Insulin LISPRO 300 UNITS/3 ML VIAL SUBQ SCH ×3 (08:20→17:07)
[2021-08-21] MEDS: Cholecalciferol (D-3) 1,000 UNIT (25MCG) TABLET PO SCH (09:13)
[2021-08-21] MEDS: Carbidopa/Levodopa 25/250 TABLET PO SCH ×3 (09:13→21:19)
[2021-08-21] MEDS: Thiamine (B-1) 100 MG TABLET PO SCH (09:13)
[2021-08-21] MEDS: Multivit/Ca/Min/Fe/FA 1 TAB TABLET PO SCH (09:13)
[2021-08-21] MEDS: CLEAR EYES NATURAL TEARS 15 ML BOTTLE BOTH EYES SCH ×4 (09:14→21:20)
[2021-08-21] MEDS: PRESERVISION VIT PO SCH (09:16)
[2021-08-21 16:06] LABS: Red Blood Cell,CSF < 2000 RBC/mcL
[2021-08-21 16:27] LABS: Glucose,CSF 85 mg/dL (40-70); Total Protein,CSF 167 mg/dL (15-45)
[2021-08-21 17:29] LABS: Basophils,CSF 0 %; Eosinophils,CSF 0 %
[2021-08-21 17:53] LABS: Appearance,CSF Clear (Clear)
[2021-08-21] MEDS ORDERED: *HR* Warfarin 5 MG TABLET PO ONE (18:00)
[2021-08-21] MEDS: Primidone 50 MG TABLET PO SCH (21:19)
[2021-08-22 01:58] LABS: INR 1.3
[2021-08-22] MEDS: Thiamine (B-1) 100 MG TABLET PO SCH (07:58)
[2021-08-22] MEDS: Multivit/Ca/Min/Fe/FA 1 TAB TABLET PO SCH (07:59)
[2021-08-22] MEDS: Cholecalciferol (D-3) 1,000 UNIT (25MCG) TABLET PO SCH (07:59)
[2021-08-22] MEDS: CLEAR EYES NATURAL TEARS 15 ML BOTTLE BOTH EYES SCH ×4 (08:00→21:36)
[2021-08-22] MEDS: PRESERVISION VIT PO SCH (08:00)
[2021-08-22] MEDS: Insulin LISPRO 300 UNITS/3 ML VIAL SUBQ SCH ×3 (08:01→17:44)
[2021-08-22] MEDS: Carbidopa/Levodopa 25/250 TABLET PO SCH ×3 (08:25→21:35)
[2021-08-22] MEDS ORDERED: *HR* Warfarin 5 MG TABLET PO ONE (18:00)
[2021-08-22] MEDS: Primidone 50 MG TABLET PO SCH (21:36)
[2021-08-23 05:43] LABS: INR 1.5; Prothrombin Time 16.4 Seconds (9.4-12.1)
[2021-08-23] MEDS: Cholecalciferol (D-3) 1,000 UNIT (25MCG) TABLET PO SCH (08:59)
[2021-08-23] MEDS: Carbidopa/Levodopa 25/250 TABLET PO SCH ×3 (08:59→22:37)
[2021-08-23] MEDS: Thiamine (B-1) 100 MG TABLET PO SCH (08:59)
[2021-08-23] MEDS: Multivit/Ca/Min/Fe/FA 1 TAB TABLET PO SCH (08:59)
[2021-08-23] MEDS: PRESERVISION VIT PO SCH (09:00)
[2021-08-23] MEDS: CLEAR EYES NATURAL TEARS 15 ML BOTTLE BOTH EYES SCH ×4 (09:00→22:37)
[2021-08-23] MEDS: Insulin LISPRO 300 UNITS/3 ML VIAL SUBQ SCH ×3 (09:01→16:15)
[2021-08-23] MEDS ORDERED: *HR* Warfarin 5 MG TABLET PO ONE (18:00)
[2021-08-23] MEDS: Primidone 50 MG TABLET PO SCH (22:36)
[2021-08-23] MEDS: Melatonin 3 MG TABLET PO PRN (22:36)
[2021-08-23] MEDS: Acetaminophen 325 MG TABLET PO PRN (22:37)
[2021-08-24 02:06] LABS: INR 1.6; Prothrombin Time 18.2 Seconds (9.4-12.1)
[2021-08-24] MEDS: Thiamine (B-1) 100 MG TABLET PO SCH (08:08)
[2021-08-24] MEDS: Multivit/Ca/Min/Fe/FA 1 TAB TABLET PO SCH (08:08)
[2021-08-24] MEDS: PRESERVISION VIT PO SCH (08:09)
[2021-08-24] MEDS: Cholecalciferol (D-3) 1,000 UNIT (25MCG) TABLET PO SCH (08:09)
[2021-08-24] MEDS: CLEAR EYES NATURAL TEARS 15 ML BOTTLE BOTH EYES SCH ×4 (08:09→21:18)
[2021-08-24] MEDS: Carbidopa/Levodopa 25/250 TABLET PO SCH ×3 (08:09→21:18)
[2021-08-24] MEDS: Insulin LISPRO 300 UNITS/3 ML VIAL SUBQ SCH ×3 (08:20→16:30)
[2021-08-24 15:03] LABS: Basophils # 0.1 K/mcL (0.0-0.2); Basophils % 0.7 %; Eosinophils # 0.1 K/mcL (0.0-0.6); Eosinophils % 1.9 %; Hematocrit 40.9 % (37.5-50.1); Hemoglobin 13.7 g/dL (12.9-16.9); Immature Granulocytes % 0.3 % (0-4); Lymphocytes # 0.9 K/mcL (0.6-4.6); Lymphocytes % 13.2 %; Mean Corpuscular HGB Conc 33.5 g/dL (31.6-35.5); Mean Corpuscular Hemoglobin 35.2 pg (28.0-33.3); Mean Corpuscular Volume 105.1 fL (83.0-100.0); Mean Platelet Volume 10.7 fL (9.4-12.4); Monocytes # 0.7 K/mcL (0.0-1.3); Monocytes % 9.9 %; Neutrophils # 5.2 K/mcL (1.6-8.9); Platelet Count 158 K/mcL (140-400); Red Blood Count 3.89 M/mcL (4.19-5.50); Red Cell Distribution Width 14.9 % (11.5-14.5)
[2021-08-24 15:08] LABS: BUN/Creatinine Ratio 26 (6-26); Blood Urea Nitrogen 24 mg/dL (8-23); Calcium 9.1 mg/dL (8.6-10.3); Carbon Dioxide 28 mEq/L (23-29); Chloride 106 mEq/L (98-107); Glucose 131 mg/dL (70-105); Osmolality,Calculated 292 (280-300); Potassium 4.2 mEq/L (3.5-5.1); Sodium 138 mEq/L (136-145); eGFR For African Americans > 60 (> 60); eGFR For Non-African Americans > 60 (> 60)
[2021-08-24] MEDS ORDERED: *HR* Warfarin 5 MG TABLET PO ONE (18:00)
[2021-08-24] MEDS: Primidone 50 MG TABLET PO SCH (21:18)
[2021-08-24] MEDS: Melatonin 3 MG TABLET PO PRN (21:20)
[2021-08-25 01:47] LABS: INR 1.7; Prothrombin Time 19.2 Seconds (9.4-12.1)
[2021-08-25] MEDS: Insulin LISPRO 300 UNITS/3 ML VIAL SUBQ SCH ×3 (08:20→17:16)
[2021-08-25] MEDS: Multivit/Ca/Min/Fe/FA 1 TAB TABLET PO SCH (08:21)
[2021-08-25] MEDS: Cholecalciferol (D-3) 1,000 UNIT (25MCG) TABLET PO SCH (08:21)
[2021-08-25] MEDS: CLEAR EYES NATURAL TEARS 15 ML BOTTLE BOTH EYES SCH ×4 (08:21→23:00)
[2021-08-25] MEDS: Thiamine (B-1) 100 MG TABLET PO SCH (08:22)
[2021-08-25] MEDS: PRESERVISION VIT PO SCH (08:22)
[2021-08-25] MEDS: Carbidopa/Levodopa 25/250 TABLET PO SCH ×3 (08:22→21:54)
[2021-08-25] MEDS ORDERED: *HR* Warfarin 3 MG TABLET PO ONE (18:00)
[2021-08-25] MEDS: Primidone 50 MG TABLET PO SCH (21:54)
[2021-08-26 04:35] LABS: INR 2.4
[2021-08-26] MEDS: Insulin LISPRO 300 UNITS/3 ML VIAL SUBQ SCH ×3 (07:34→16:42)
[2021-08-26] MEDS: PRESERVISION VIT PO SCH (09:50)
[2021-08-26] MEDS: Cholecalciferol (D-3) 1,000 UNIT (25MCG) TABLET PO SCH (09:50)
[2021-08-26] MEDS: Thiamine (B-1) 100 MG TABLET PO SCH (09:50)
[2021-08-26] MEDS: CLEAR EYES NATURAL TEARS 15 ML BOTTLE BOTH EYES SCH ×4 (09:50→19:32)
[2021-08-26] MEDS: Multivit/Ca/Min/Fe/FA 1 TAB TABLET PO SCH (09:50)
[2021-08-26] MEDS: Carbidopa/Levodopa 25/250 TABLET PO SCH ×3 (09:52→19:33)
[2021-08-26] MEDS: Furosemide 40 MG TABLET PO SCH (14:25)
[2021-08-26] MEDS: Primidone 50 MG TABLET PO SCH (19:33)
[2021-08-27 02:57] LABS: Basophils % 0.4 %; Eosinophils # 0.1 K/mcL (0.0-0.6); Eosinophils % 0.8 %; Hematocrit 41.8 % (37.5-50.1); Hemoglobin 14.5 g/dL (12.9-16.9); Immature Granulocytes % 0.5 % (0-4); Lymphocytes % 12.4 %; Mean Corpuscular HGB Conc 34.7 g/dL (31.6-35.5); Mean Corpuscular Hemoglobin 36.1 pg (28.0-33.3); Mean Platelet Volume 9.7 fL (9.4-12.4); Monocytes # 0.8 K/mcL (0.0-1.3); Monocytes % 9.6 %; Neutrophils # 6.3 K/mcL (1.6-8.9); Platelet Count 165 K/mcL (140-400); Red Blood Count 4.02 M/mcL (4.19-5.50); Red Cell Distribution Width 14.7 % (11.5-14.5); Segmented Neutrophils % 76.3 %; White Blood Count 8.2 K/mcL (4.3-11.1)
[2021-08-27 03:03] LABS: INR 2.3
[2021-08-27 03:13] LABS: BUN/Creatinine Ratio 19 (6-26); Blood Urea Nitrogen 18 mg/dL (8-23); Calcium 9.2 mg/dL (8.6-10.3); Carbon Dioxide 28 mEq/L (23-29); Chloride 103 mEq/L (98-107); Glucose 146 mg/dL (70-105); Osmolality,Calculated 293 (280-300); Potassium 3.6 mEq/L (3.5-5.1); Sodium 139 mEq/L (136-145); eGFR For African Americans > 60 (> 60); eGFR For Non-African Americans > 60 (> 60)
[2021-08-27] MEDS: Carbidopa/Levodopa 25/250 TABLET PO SCH ×3 (07:50→21:19)
[2021-08-27] MEDS: CLEAR EYES NATURAL TEARS 15 ML BOTTLE BOTH EYES SCH ×4 (07:50→21:20)
[2021-08-27] MEDS: Thiamine (B-1) 100 MG TABLET PO SCH (07:50)
[2021-08-27] MEDS: Cholecalciferol (D-3) 1,000 UNIT (25MCG) TABLET PO SCH (07:50)
[2021-08-27] MEDS: Insulin LISPRO 300 UNITS/3 ML VIAL SUBQ SCH ×3 (07:50→16:31)
[2021-08-27] MEDS: Furosemide 40 MG TABLET PO SCH ×2 (07:50→18:06)
[2021-08-27] MEDS: Multivit/Ca/Min/Fe/FA 1 TAB TABLET PO SCH (07:50)
[2021-08-27] MEDS: PRESERVISION VIT PO SCH (07:52)
[2021-08-27] MEDS ORDERED: *HR* Warfarin 4 MG TABLET PO ONE (18:00)
[2021-08-27] MEDS ORDERED: *HR* Warfarin 0.5 MG TABLET PO ONE (18:00)
[2021-08-27] MEDS: Primidone 50 MG TABLET PO SCH (21:19)
[2021-08-28 05:39] LABS: INR 2.4; Prothrombin Time 26.5 Seconds (9.4-12.1)
[2021-08-28] MEDS: Cholecalciferol (D-3) 1,000 UNIT (25MCG) TABLET PO SCH (09:24)
[2021-08-28] MEDS: Thiamine (B-1) 100 MG TABLET PO SCH (09:24)
[2021-08-28] MEDS: Multivit/Ca/Min/Fe/FA 1 TAB TABLET PO SCH (09:24)
[2021-08-28] MEDS: CLEAR EYES NATURAL TEARS 15 ML BOTTLE BOTH EYES SCH ×2 (09:24→12:50)
[2021-08-28] MEDS: Furosemide 40 MG TABLET PO SCH ×2 (09:24→18:20)
[2021-08-28] MEDS: Insulin LISPRO 300 UNITS/3 ML VIAL SUBQ SCH ×2 (09:25→12:48)
[2021-08-28] MEDS: PRESERVISION VIT PO SCH (09:25)
[2021-08-28] MEDS: Carbidopa/Levodopa 25/250 TABLET PO SCH ×2 (09:45→16:51)
[2021-08-28 16:20] LABS: Adenovirus Not Detected (Not Detect); Coronavirus 229E Not Detected (Not Detect); Coronavirus HKU1 Not Detected (Not Detect); Coronavirus NL63 Not Detected (Not Detect); Coronavirus OC43 Not Detected (Not Detect); Human Metapneumovirus Not Detected (Not Detect); Human Rhinovirus/Enterovirus Not Detected (Not Detect); SARS-CoV-2 Not Detected (Not Detect)
[2021-08-28 16:21] LABS: Bordetella Pertussis Not Detected (Not Detect); Chlamydophila pneumoniae Not Detected (Not Detect); Influenza A Subtype 2009 H1 Not Detected (Not Detect); Influenza B Not Detected (Not Detect); Mycoplasma pneumoniae Not Detected (Not Detect); Parainfluenza Virus 1 Not Detected (Not Detect); Parainfluenza Virus 2 Not Detected (Not Detect); Parainfluenza Virus 3 Not Detected (Not Detect); Parainfluenza Virus 4 Not Detected (Not Detect); Respiratory Syncytial Virus Not Detected (Not Detect)
[2021-08-28] MEDS ORDERED: FLU Vac QV 21-22 (6Month+)/PF 0.5 ML SYRINGE IM ONE (16:49)
[2021-08-28] MEDS ORDERED: *HR* Warfarin 5 MG TABLET PO ONE (18:00)
[2021-08-28 19:32] VITALS: BP 109/75; PULSE 83; TEMP 97.3; O2SAT 95
== END 2021-08-28 20:40 | DRG 70 ==
LOC: 4WAOSI 13:16 → EMEROOARM 13:16 → 4WAOSI 17:50 → SUATTDRO 20:44 → 4WAOSI 08-03 09:04 → SUATTDRO 08-03 15:30 → 2ANU 08-07 21:50
PROVIDERS: ADMIT Internal Medicine; ATTEND General Practice